=== PATIENT | male | born 1945 | race Caucasian/White ===

== ENCOUNTER → 2017-04-21 16:44 | Outpatient (CLI) | payer MEDICARE, MEDICAID, SELFPAY ==
[2017-04-21 17:35] LABS: PSA,Total- Diagnostic 8.45 ng/mL (0.0-4.0)
== END ==
PROVIDERS: Family Provider Family Medicine; PCP Family Medicine; Visit Provider Nurse Practitioner Adult Health
DX: R97.20 Elevated prostate specific antigen [PSA] (principal)
CPT/HCPCS: 36415; 84153

== ENCOUNTER 2017-04-24 20:51 | Emergency (ER) | payer MEDICARE, MEDICAID, SELFPAY ==
[2017-04-24 20:52] VITALS: BP 155/87; PULSE 90; RESP 16; TEMP 36.7; O2SAT 97; BMI 24.3
--- NOTE | 2017-04-24 21:15 | RAD_ITS ---
STUDY: X-RAY - LEFT SHOULDER REASON FOR EXAM: Male, 72 years old. Pain, injury TECHNIQUE: 2 view(s) of the shoulder. COMPARISON: None. FINDINGS: There are mild degenerative changes at the acromioclavicular joint. There is no fracture or dislocation. There is no osseous destruction. Normal glenohumeral articulation. Normal humeral head and visualized proximal humerus. The soft tissue structures are unremarkable. Normal visualized pulmonary apex. RAD/Shoulder min 2 Views IMPRESSION: No fracture or dislocation Electronically Signed: Roberto Honeycutt MD at 22:09 EST Tel , Service support ,
--- NOTE | 2017-04-24 21:45 | RAD_ITS ---
STUDY: X-RAY - RIGHT KNEE REASON FOR EXAM: Male, 72 years old. Pain, injury TECHNIQUE: 4 view(s) of the knee. COMPARISON: None. FINDINGS: Normal visualized distal femur. Normal visualized proximal tibia and fibula. Normal proximal tibiofibular articulation. Normal medial femorotibial compartment. Normal lateral femorotibial compartment. Normal patellofemoral articulation. The soft tissue structures are unremarkable. RAD/Knee 4 or More Views IMPRESSION: Normal x-ray examination of the knee. Electronically Signed: Roberto Honeycutt MD at 22:08 EST Tel , Service support ,
--- NOTE | 2017-04-24 22:18 | ED.DCSUM_ITS ---
- ER Visit Summary Date of Service: 04/24/17 Chief Complaint: Fall History of Present Illness: The patient is a 72 M who was playing basketball tonight when he fell. He notes pain to his right knee and his left shoulder. He states he fell backwards is unsure how he injured these areas. No loss of consciousness. Denies any other pain. Physical Examination: Afebrile vital signs are stable Patient has tenderness to palpation over the anterior patella on the right and posterior left shoulder. He has full range of motion excellent muscle strength. Neurovascular intact distally. Test Results: X-rays of the knee and shoulder were negative for fracture Emergency Department Course and Treatment: She will be discharged home with conservative treatments and follow-up with his doctor if not improved Impression: 1. Right knee and left shoulder contusion This note was generated with [employer] dictation software. It may contain incorrect words, spelling, and punctuation that were not noted in review of the chart prior to signing ED Disposition - Plan for ED Patient: Disposition: Home or Assisted Living Chief Complaint: Fall Instructions: ED Contusion Lower Ext, ED Contusion Upper Ext Referrals: Tigre Paredes MD [Primary Care Provider] - As Needed
[2017-04-24 22:27] VITALS: RESP 16
== END 2017-04-24 22:28 | disposition home or self-care (01) ==
PROVIDERS: Emergency Provider Emergency Medicine; Family Provider Family Medicine; PCP Family Medicine
DX: S80.01XA Contusion of right knee, initial encounter (principal); S40.012A Contusion of left shoulder, initial encounter; W18.30XA Fall on same level, unspecified, initial encounter; Y93.67 Activity, basketball; Y92.89 Other specified places as the place of occurrence of the external cause; Y99.9 Unspecified external cause status; F32.9 Major depressive disorder, single episode, unspecified
CPT/HCPCS: 73030; 73564; 99283

== ENCOUNTER → 2017-07-29 16:35 | Outpatient (CLI) | payer MEDICARE, MEDICAID, SELFPAY ==
--- NOTE | 2017-07-29 16:35 | DT_ITS ---
This patient was seen during an EMR downtime July 28, 2017 - August 04, 2017. This patient may have a combination of paper and electronic documentation or all paper documentation. All documentation is viewable within the e-chart portion of [facility] for each patient visit.
[2017-08-03 19:26] LABS: Vitamin B12 283 pg/mL (211-911)
[2017-08-04 09:42] LABS: ALB/GLOB Ratio 1.3 RATIO (0.9-2.4); AST(SGOT) 20 U/L (15-37); Alanine Aminotransfer ALT/SGPT 24 U/L (16-61); Albumin, Serum 3.9 g/dL (3.2-5.0); Alkaline Phosphatase 63 U/L (45-117); BUN 17 mg/dL (7-18); BUN/Creat Ratio 16.7 RATIO (10-20); Calcium,Total 8.8 mg/dL (8.5-10.1); Creatinine, Serum 1.02 mg/dL (0.70-1.30); EST Glomerular Filtration Rate 77 mL/min (>60); Est Glom Filt Rate - Afr Amer 93 mL/min (>60); Globulin 3.1 g/dL (2.2-4.2); Glucose 83 mg/dL (74-106)
[2017-08-04 09:43] LABS: Anion Gap 8 (5-15); Chloride 108 mmol/L (98-107); Potassium 4.6 mmol/L (3.5-5.1); Sodium Level 144 mmol/L (136-145); T4 Free Direct 1.03 ng/dL (0.76-1.46); Thyroid Stim Hormone (TSH) 2.22 uIU/mL (0.358-3.74)
[2017-08-04 09:48] LABS: Hematocrit 45.9 % (40-54); Hemoglobin 15.3 g/dl (13.0-16.5); Mean Corp Hgb Conc 33.3 g/gl (32-36); Mean Corpuscular Hgb 31.9 pg (27.0-32.0); Mean Corpuscular Volume 95.8 fL (80-94); Mean Platelet Vol. 11.3 fl (6.2-12.0); POSITIVE COUNT NO; POSITIVE MORPHOLOGY NO; Platelet Count 176 K/mm3 (150-450); RBC Distribution Width CV 13.8 % (11.6-14.6); Red Blood Count 4.79 M/mm3 (4.6-6.2); White Blood Count 11.4 K/mm3 (4.4-11.0)
[2017-08-04 09:49] LABS: Absolute Lymphocyte Count 8.21 X10^3/ul (0.83-4.51); Absolute Neutrophil Count 2.7 X10^3/uL (2.0-7.7); Basophil# 0.02 X10^3/uL; Basophil% 0.2 % (0-1); Differential Indicated SCAN CRITERIA MET; Eosinophil# 0.11 X10^3/uL; Lymphocyte # 8.21 X10^3/ul (4.0); Monocyte# 0.39 X10^3/uL; Monocyte% 3.4 % (0-10); Neutrophil # 2.67 X10^3/uL (2.7-7.7); Neutrophil % 23.3 % (47-70); POSITIVE DIFFERENTIAL YES
[2017-08-04 09:50] LABS: Anisocytosis 1+; Differential Comment SCAN; Macrocytosis 1+
[2017-08-07 09:49] LABS: Pathologist Review Reviewed
== END ==
PROVIDERS: Family Provider Family Medicine; PCP Family Medicine; Visit Provider Family Medicine
DX: G25.0 Essential tremor (principal); R63.4 Abnormal weight loss
CPT/HCPCS: 36415; 80053; 82607; 84439; 84443; 85025

== ENCOUNTER → 2017-09-09 14:42 | Outpatient (CLI) | payer MEDICARE, MEDICAID, SELFPAY ==
[2017-09-09 18:07] LABS: Absolute Lymphocyte Count 4.81 X10^3/ul (0.83-4.51); Basophil# 0.03 X10^3/uL; Basophil% 0.4 % (0-1); Eosinophil# 0.14 X10^3/uL; Eosinophils% 1.7 % (0-5); Hematocrit 40.3 % (40-54); Hemoglobin 13.5 g/dl (13.0-16.5); Lymphocyte # 4.81 X10^3/ul (4.0); Lymphocyte % 57.4 % (19-41); Mean Corp Hgb Conc 33.5 g/gl (32-36); Mean Corpuscular Hgb 32.3 pg (27.0-32.0); Mean Corpuscular Volume 96.4 fL (80-94); Mean Platelet Vol. 10.8 fl (6.2-12.0); Monocyte# 0.36 X10^3/uL; Monocyte% 4.3 % (0-10); Neutrophil # 3.02 X10^3/uL (2.7-7.7); Platelet Count 162 K/mm3 (150-450); RBC Distribution Width CV 13.6 % (11.6-14.6); RBC Distribution Width SD 46.5 fl (35.1-43.9); Red Blood Count 4.18 M/mm3 (4.6-6.2); White Blood Count 8.4 K/mm3 (4.4-11.0)
[2017-09-09 18:20] LABS: POSITIVE COUNT NO; POSITIVE DIFFERENTIAL NO; POSITIVE MORPHOLOGY NO
== END ==
PROVIDERS: Family Provider Family Medicine; PCP Family Medicine; Visit Provider Family Medicine
DX: D72.820 Lymphocytosis (symptomatic) (principal)
CPT/HCPCS: 36415; 85025

== ENCOUNTER → 2017-11-26 08:48 | Outpatient (CLI) | payer MEDICARE, MEDICAID, SELFPAY ==
[2017-11-26 09:38] LABS: PSA,Total- Diagnostic 7.72 ng/mL (0.0-4.0)
== END ==
PROVIDERS: Family Provider Family Medicine; PCP Family Medicine; Referring Provider Nurse Practitioner Adult Health; Visit Provider Nurse Practitioner Adult Health
DX: R97.20 Elevated prostate specific antigen [PSA] (principal)
CPT/HCPCS: 36415; 84153

== ENCOUNTER → 2018-05-26 10:05 | Outpatient (CLI) | payer MEDICARE, MEDICAID, SELFPAY ==
[2018-05-26 12:29] LABS: PSA,Total- Diagnostic 6.56 ng/mL (0.0-4.0)
== END ==
PROVIDERS: Family Provider Family Medicine; PCP Family Medicine; Referring Provider Nurse Practitioner Adult Health; Visit Provider Nurse Practitioner Adult Health
DX: R97.20 Elevated prostate specific antigen [PSA] (principal)
CPT/HCPCS: 36415; 84153

== ENCOUNTER → 2018-11-26 09:30 | Outpatient (CLI) | payer MEDICARE, MEDICAID, SELFPAY ==
[2018-11-26 10:33] LABS: PSA,Total- Diagnostic 6.44 ng/mL (0.0-4.0)
== END ==
PROVIDERS: Family Provider Family Medicine; PCP Family Medicine; Referring Provider Nurse Practitioner Adult Health; Visit Provider Nurse Practitioner Adult Health
DX: R97.20 Elevated prostate specific antigen [PSA] (principal)
CPT/HCPCS: 36415; 84153

== ENCOUNTER → 2019-09-13 04:36 | Outpatient (CLI) | payer MEDICARE, MEDICAID, SELFPAY ==
[2019-09-13 09:08] LABS: Absolute Lymphocyte Count 10.57 X10^3/uL (0.83-4.51); Absolute Neutrophil Count 2.7 X10^3/uL (2.0-7.7); Basophil# 0.04 X10^3/uL; Basophil% 0.3 % (0-1); Eosinophil# 0.14 X10^3/uL; Hematocrit 42.4 % (40-54); Hemoglobin 14.3 g/dL (13.0-16.5); Lymphocyte # 10.57 X10^3/ul (4.0); Lymphocyte % 76.3 % (19-41); Mean Corp Hgb Conc 33.7 g/dL (32-36); Mean Corpuscular Hgb 32.8 pg (27.0-32.0); Mean Corpuscular Volume 97.2 fL (80-94); Mean Platelet Vol. 10.2 fl (6.2-12.0); Monocyte# 0.36 X10^3/uL; Monocyte% 2.6 % (0-10); NRBC Flagged by Analyzer 0 % (0-5); Neutrophil # 2.72 X10^3/uL (2.7-7.7); Neutrophil % 19.7 % (47-70); POSITIVE DIFFERENTIAL YES; POSITIVE MORPHOLOGY YES; Platelet Count 157 K/mm3 (150-450); RBC Distribution Width CV 13.1 % (11.6-14.6); RBC Distribution Width SD 46.4 fl (35.1-43.9); Red Blood Count 4.36 M/mm3 (4.6-6.2); White Blood Count 13.9 K/mm3 (4.4-11.0)
[2019-09-13 09:11] LABS: Differential Indicated SCAN CRITERIA MET
[2019-09-13 09:15] LABS: ALB/GLOB Ratio 1.3 RATIO (0.9-2.4); AST(SGOT) 19 U/L (15-37); Alanine Aminotransfer ALT/SGPT 29 U/L (16-61); Albumin, Serum 3.7 g/dL (3.2-5.0); Alkaline Phosphatase 83 U/L (45-117); Anion Gap 4 (5-15); BUN 17 mg/dL (7-18); BUN/Creat Ratio 15.9 RATIO (10-20); Calcium,Total 8.8 mg/dL (8.5-10.1); Chloride 110 mmol/L (98-107); Cholesterol 90 mg/dL (200); Creatinine, Serum 1.07 mg/dL (0.70-1.30); EST Glomerular Filtration Rate 72 mL/min (>60); Est Glom Filt Rate - Afr Amer 87 mL/min (>60); Globulin 2.8 g/dL (2.2-4.2); Glucose 107 mg/dL (74-106); High Density Lipoprotein 39 mg/dL; Magnesium 2.2 mg/dL (1.6-2.6); Potassium 4.2 mmol/L (3.5-5.1); Protein, Total 6.5 g/dL (6.4-8.2); Sodium Level 141 mmol/L (136-145); Thyroid Stim Hormone (TSH) 2.08 uIU/mL (0.358-3.74); Triglycerides 94 mg/dL; Very Low Density Lipoprotein 19 mg/dL (5-40)
[2019-09-13 09:34] LABS: Vitamin B12 365 pg/mL (211-911)
[2019-09-13 09:42] LABS: Smudge Cells 1+
[2019-09-14 11:42] LABS: Pathologist Review Reviewed
== END ==
PROVIDERS: PCP Family Medicine; Visit Provider Family Medicine
DX: F03.90 Unspecified dementia, unspecified severity, without behavioral disturbance, psychotic disturbance, mood disturbance, and anxiety (principal); G25.0 Essential tremor; E78.5 Hyperlipidemia, unspecified; E83.42 Hypomagnesemia
CPT/HCPCS: 36415; 80053; 80061; 82607; 83735; 84443; 85025

== ENCOUNTER → 2019-10-08 05:28 | Outpatient (CLI) | payer MEDICARE, MEDICAID, SELFPAY ==
[2019-10-08 09:03] LABS: Absolute Lymphocyte Count 8.43 X10^3/uL (0.83-4.51); Absolute Neutrophil Count 2.2 X10^3/uL (2.0-7.7); Basophil# 0.03 X10^3/uL; Basophil% 0.3 % (0-1); Eosinophils% 0.9 % (0-5); Hematocrit 41.5 % (40-54); Hemoglobin 13.4 g/dL (13.0-16.5); Lymphocyte # 8.43 X10^3/ul (4.0); Lymphocyte % 76.8 % (19-41); Mean Corp Hgb Conc 32.3 g/dL (32-36); Mean Corpuscular Hgb 31.5 pg (27.0-32.0); Mean Corpuscular Volume 97.4 fL (80-94); Mean Platelet Vol. 10.5 fl (6.2-12.0); Monocyte# 0.23 X10^3/uL; Monocyte% 2.1 % (0-10); NRBC Flagged by Analyzer 0 % (0-5); Neutrophil # 2.17 X10^3/uL (2.7-7.7); Neutrophil % 19.8 % (47-70); POSITIVE DIFFERENTIAL YES; POSITIVE MORPHOLOGY YES; Platelet Count 160 K/mm3 (150-450); RBC Distribution Width CV 12.8 % (11.6-14.6); RBC Distribution Width SD 45.3 fl (35.1-43.9); Red Blood Count 4.26 M/mm3 (4.6-6.2)
[2019-10-08 09:37] LABS: Differential Indicated SCAN CRITERIA MET
[2019-10-08 09:38] LABS: Differential Comment SCANNED; Reactive Lymphocyte 2+
== END ==
PROVIDERS: PCP Family Medicine; Visit Provider Family Medicine
DX: D72.820 Lymphocytosis (symptomatic) (principal)
CPT/HCPCS: 36415; 85025

== ENCOUNTER 2020-07-17 13:12 | Emergency (ER) | payer MEDICARE, MEDICAID, SELFPAY ==
[2020-07-17] VITALS (9 sets, daily range): BP systolic 107–142; BP diastolic 60–87; PULSE 70–82; RESP 6–20; TEMP 36.1–36.6; O2SAT 95–98; BMI 26.4
--- NOTE | 2020-07-17 13:16 | CT_ITS ---
STUDY: CT HEAD STROKE PROTOCOL W/O CONTRAST INJECTION REASON FOR EXAM: Male, 75 years old. Neuro deficit, acute, stroke suspected RADIATION DOSAGE (If Supplied By Facility): CTDIvol = ( 44.99 ) mGy, DLP = ( 829.85 ) mGycm TECHNIQUE: Transaxial CT imaging of the brain was performed without administration of intravenous contrast material. Individualized dose optimization techniques were used for this CT. COMPARISON: No relevant priors. FINDINGS: Normal soft tissue structures. Normal calvarium. There is mild cerebral atrophy with widening of the extra-axial spaces and ventricular dilatation. Normal white matter tracts of the cerebral hemispheres. Normal basal ganglia and thalami. Normal brainstem. Normal cerebellum. There is no intracranial hemorrhage. There are no findings of an acute ischemic infarction. Atherosclerotic plaque formation of the cavernous portions of the internal carotid arteries bilaterally. Normal visualized paranasal sinuses. CT/STROKE Brain/Head without Cont IMPRESSION: Chronic involutional changes of the brain. N.B. : The above information has been verbally conveyed by Rashi Baird MD to Keith Schwartz on 07/17/2020 13:27:33 (ET). Electronically Signed: Rashi Baird MD at 13:28 EDT , Service support ,
--- NOTE | 2020-07-17 13:16 | RAD_ITS ---
STUDY: X-RAY CHEST REASON FOR EXAM: Male, 75 years old. Neuro deficit, acute, stroke suspected TECHNIQUE: Single AP portable view of the chest. COMPARISON: None. FINDINGS: EKG electrodes are seen. Mild degree of increased markings at the lung bases suggest mild bibasilar atelectasis. There is no demonstrated pleural abnormality. Normal size heart. Normal mediastinum and lucille. Normal visualized pulmonary arteries. There is atherosclerotic tortuosity of the aortic arch and descending thoracic aorta. Normal visualized thoracic spine. Normal visualized ribs, clavicles, and shoulders. There is no demonstrated abnormality of the visualized soft tissue structures of the upper abdomen. RAD/Chest 1 View IMPRESSION: Mild degree of increased markings at the lung bases suggestive of basilar atelectasis. Electronically Signed: Rashi Baird MD at 14:17 EDT , Service support ,
--- NOTE | 2020-07-17 13:16 | EKG12_ITS ---
Test Reason : STROKE Blood Pressure : / mmHG Vent. Rate : 067 BPM Atrial Rate : 067 BPM P-R Int : 168 ms QRS Dur : 098 ms QT Int : 398 ms P-R-T Axes : 051 -03 062 degrees QTc Int : 420 ms Normal sinus rhythm Incomplete right bundle branch block Nonspecific ST and T wave abnormality Abnormal ECG Confirmed by MOLLY ALVA, DELANEY ([id number]), map editor BHARATI KHAN ([id number]) on 07/19/2020 9:38:41 AM Referred By: LORENE Confirmed By:DELANEY BARNES MD
--- NOTE | 2020-07-17 13:16 | CT_ITS ---
STUDY: CTA HEAD AND NECK WITH CONTRAST REASON FOR EXAM: Male, 75 years old. Neuro deficit, acute, stroke suspected RADIATION DOSAGE (If Supplied By Facility): CTDIvol = ( 22.62 ) mGy, DLP = ( 664.41 ) mGycm TECHNIQUE: CT angiography was performed with a multi-detector CT scanner. Data acquisition was obtained from the skull base through the vertex following intravenous administration of IV 100mL [id number]-[id number]. MIP images were reconstructed from the axial data set. Post-processing of the angiographic images was performed, with multiplanar reformation and 3D reconstruction. Individualized dose optimization techniques were used for this CT. COMPARISON: No relevant priors. FINDINGS: Normal bilateral petrous carotid arteries. Normal right cavernous carotid artery with a normal supraclinoid bifurcation. Normal left cavernous carotid artery with a normal supraclinoid bifurcation. Normal right A1 segments of the anterior cerebral artery. Normal left A1 segments of the anterior cerebral artery. Normal intact anterior communicating artery (ACOM). Normal bilateral A2 segments of the anterior cerebral arteries. Normal right M1 and M2 segments of the middle cerebral arteries, with a normal M1 bifurcation. Normal left M1 and M2 segments of the middle cerebral arteries, with a normal M1 bifurcation. Normal right posterior communicating artery (PCOM). Normal left posterior communicating artery (PCOM). Normal bilateral vertebral arteries. Normal basilar artery with a normal basilar bifurcation. The visualized bilateral superior cerebellar (SCA) arteries are normal. Normal bilateral P1, P2 and visualized P3 segments of the posterior cerebral arteries. There is no demonstrated aneurysm of the quinault of [place]. There is no demonstrated abnormality of the visualized brain. AORTIC ARCH: There is a bovine origin of the great vessels arising from the aortic arch with a common origin of the brachiocephalic and left common carotid artery. Normal origin of the left subclavian artery. RIGHT CAROTID ARTERIES: Normal right common carotid artery (CCA). Normal right common carotid bulb. Normal origin of the right internal carotid (ICA) artery without a hemodynamically significant stenosis. Normal visualized cervical portion of the right internal carotid artery. There is mild atherosclerotic plaque formation of the origin of the right external carotid artery with less than 50% cross sectional diameter stenosis. LEFT CAROTID ARTERIES: Normal left common carotid artery (CCA). Normal left common carotid bulb. There is severe atherosclerotic plaque formation of the origin of the left internal carotid artery with a near complete occlusion. Decreased caliber of the cervical portion of the left internal carotid artery. Normal origin of the left external carotid artery (ECA). VERTEBRAL ARTERIES: There is enhancement within the bilateral vertebral arteries with a small right vertebral artery, and a dominant left vertebral artery. 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 N.B. : The above information has been verbally conveyed by Rashi Baird MD to Dr Efren DO on 07/17/2020 13:44:11 (ET). Electronically Signed: Rashi Baird MD at 13:45 EDT , Service support ,
--- NOTE | 2020-07-17 13:21 | CM.ED ---
SOCIAL WORK Stroke Alert Responded to Stroke Alert. Patient's sister, Anusha arrived. Patient in CT. Introduced role and reason for referral. Sister states patient from assisted and she is HPOA. Sister states patient had an episode at [facility] yesterday that she informed worker at assisted. Sister escorted back to patient's room. This worker to remain available for needs. Linda Martin, NET SQL DEVELOPER, STRESS ENGINEER
[2020-07-17 13:38] LABS: Absolute Neutrophil Count 3.6 X10^3/uL (2.0-7.7); Basophil# 0.05 X10^3/uL; Basophil% 0.3 % (0-1); Eosinophil# 0.09 X10^3/uL; Eosinophils% 0.6 % (0-5); Hematocrit 43.4 % (40-54); Hemoglobin 14.5 g/dL (13.0-16.5); Lymphocyte % 71.4 % (19-41); Mean Corp Hgb Conc 33.4 g/dL (32-36); Mean Corpuscular Hgb 32.1 pg (27.0-32.0); Mean Platelet Vol. 10.7 fl (6.2-12.0); Monocyte# 0.89 X10^3/uL; Monocyte% 5.5 % (0-10); NRBC Flagged by Analyzer 0.2 % (0-5); Neutrophil # 3.59 X10^3/uL (2.7-7.7); POSITIVE DIFFERENTIAL YES; POSITIVE MORPHOLOGY YES; Platelet Count 163 K/mm3 (150-450); RBC Distribution Width CV 13.3 % (11.6-14.6); Red Blood Count 4.52 M/mm3 (4.6-6.2); White Blood Count 16.3 K/mm3 (4.4-11.0)
--- NOTE | 2020-07-17 13:41 | EDS_ITS ---
HPI History of Present Illness Chief Complaint: Neuro S/Sx Informant: patient, family and EMS Onset/Context/Timing Onset: Today and Hours (3) Context: Sudden Onset Quality and Location: Positive for Right Facial Droop and Expressive Aphasia Narrative Narrative: Patient presents with stroke that occurred today. Patient was last known well at 10 AM. Patient presented here at approximately 1:13 PM. Patient was found to have facial weakness and difficulty following commands at his half-way. Prehospital stroke team was called. Patient has a history of MRDD and that limits his history. Patient denies any headaches. Patient denies any nausea or vomiting. [facility] Medical History Bundle branch block Hyperlipemia Home Medications flaxseed oil 1,000 mg PO QHS 12/02/16 [History Last Taken 07/16/20] sertraline 50 mg PO QHS 12/02/16 [History Last Taken 07/16/20] aspirin 81 mg PO QHS 07/17/20 [History Last Taken 07/16/20] atorvastatin 40 mg PO QHS 07/17/20 [History Last Taken 07/16/20] donepezil 10 mg PO QHS 07/17/20 [History Last Taken 07/16/20] magnesium oxide 400 mg PO DAILY 07/17/20 [History Last Taken 07/17/20] memantine 5 mg PO BID 07/17/20 [History Last Taken 07/17/20] Allergy/AdvReac Type Severity Reaction Status Date / Time meloxicam AdvReac Other Verified 07/17/20 13:25 Social History Smoking Status: Never smoker ROS ROS ED Constitutional Constitutional ED: Denies chills or fever(s) Eyes Eyes: Denies blurry vision or change in vision ENT ENT ED: Denies rhinorrhea or sore throat Cardiovascular Cardiovascular: Denies chest pain or palpitations Respiratory/Chest Respiratory/Chest: Denies cough or dyspnea Gastrointestinal Gastrointestinal: Denies nausea or vomiting Genitourinary Genitourinary ED: Denies dysuria or hematuria Musculoskeletal Musculoskeletal: Denies back pain or neck pain Integumentary Denies abscess or rash Neurologic Neurologic: Reports weakness; Denies headache(s) Allergic/Immunologic Allergic/Immunologic ED: Denies mouth swelling or urticaria EXAM Physical Exam Const Vital Signs: 07/17/20 13:16 07/17/20 13:20 07/17/20 13:37 Temperature 97 F L Temperature Source Temporal Pulse Rate 71 72 Respiratory Rate 18 18 Blood Pressure 120/82 H 142/78 H Blood Pressure Mean 94 99 Blood Pressure Source Blood Pressure Position Blood Pressure Location Pulse Ox 98 98 Oxygen Delivery Method Room Air Room Air Room Air 07/17/20 13:39 07/17/20 13:46 07/17/20 13:54 Temperature 98 F 97 F L Temperature Source Temporal Temporal Pulse Rate 82 70 75 Respiratory Rate 18 20 H 16 Blood Pressure 132/81 H 107/60 129/71 H Blood Pressure Mean 98 75 90 Blood Pressure Source Monitor Manual Blood Pressure Position Supine Semi-Fowlers Blood Pressure Location Right Arm Right Arm Pulse Ox 96 97 96 Oxygen Delivery Method Room Air Room Air Room Air 07/17/20 14:05 07/17/20 14:20 07/17/20 14:35 Temperature Temperature Source Pulse Rate 77 72 72 Respiratory Rate 18 18 16 Blood Pressure 122/62 H 131/73 H 127/87 H Blood Pressure Mean 82 92 100 Blood Pressure Source Monitor Monitor Monitor Blood Pressure Position Semi-Fowlers Semi-Fowlers Semi-Fowlers Blood Pressure Location Right Arm Right Arm Right Arm Pulse Ox 97 95 98 Oxygen Delivery Method Room Air Room Air Room Air 07/17/20 14:45 Temperature Temperature Source Pulse Rate 71 Respiratory Rate 6 L Blood Pressure 132/82 H Blood Pressure Mean 98 Blood Pressure Source Blood Pressure Position Blood Pressure Location Pulse Ox 98 Oxygen Delivery Method Positive well nourished HEENT Reports moist mucous membranes atraumatic Eyes PERRL and EOMs intact bilaterally Neck supple and no JVD Resp normal respiratory effort and clear to auscultation bilaterally Cardio no murmurs Rate: regular rate Rhythm: regular rhythm GI normal to inspection, nondistended, normoactive bowel sounds, soft to palpation and non-tender Extremity normal to inspection General Extremety ED: Negative for deformity or tenderness General Extremity: Negative for deformity Neuro no sensory deficits noted Neuro Narrative: There is slight right facial weakness. Otherwise cranial nerves II through XII are grossly intact. There are no visual field deficits. Patient had difficulty with writing a sentence. Patient also had trouble iden tifying pictures. Sensorium / Orientation: alert, oriented to person and oriented to place Speech: speech normal Motor Exam: strength 5/5 throughout Psych mental status grossly normal Skin Rashes: no rashes STROKE Vital Signs/Narrative: Vital Signs Temp Pulse Resp BP Pulse Ox 07/17/20 14:45 71 6 L 132/82 H 98 07/17/20 14:35 72 16 127/87 H 98 07/17/20 14:20 72 18 131/73 H 95 07/17/20 14:05 77 18 122/62 H 97 07/17/20 13:54 97 F L 75 16 129/71 H 96 07/17/20 13:46 70 20 H 107/60 97 07/17/20 13:39 98 F 82 18 132/81 H 96 07/17/20 13:20 97 F L 72 18 142/78 H 98 07/17/20 13:16 71 18 120/82 H 98 Inital Vital Signs reviewed: Yes MDM MDM MDM Narrative Medical decision making narrative: Patient had an expressive aphasia and right facial weakness that began approximately 3 hours and 15 minutes prior to arrival. Prehospital stroke team was activated. Patient was evaluated by stroke neurologist at [facility]. He recommended giving patient TPA. This was ordered. Family was in agreement with this. CTA results showed near complete occlusion of the left internal carotid artery. This was interpreted by the radiologist and reviewed by myself. I discussed this result with the stroke neurologist. Patient will be transferred to [facility] for further evaluation of this. Family understood and was agreeable with the plan. All questions were answered. Lab Data Attestation: I reviewed the patient's lab results. Labs: Laboratory Results - last 24 hr 07/17/20 07/17/20 07/17/20 13:10 13:10 13:10 WBC 16.3 H RBC 4.52 L Hgb 14.5 Hct 43.4 MCV 96.0 H MCH 32.1 H MCHC 33.4 RDW Std Deviation 47.0 H RDW Coeff of [place] 13.3 Plt Count 163 MPV 10.7 Immature Gran % (Auto) 0.200 Neut % (Auto) 22.0 L Lymph % (Auto) 71.4 H [place] % (Auto) 5.5 Eos % (Auto) 0.6 Baso % (Auto) 0.3 Absolute Neuts (auto) 3.6 Absolute Lymphs (auto) 11.60 H Nucleated RBC % 0.2 PT Cancelled INR Cancelled APTT Cancelled Sodium 138 Potassium 4.1 Chloride 107 Carbon Dioxide 26.0 Anion Gap 5 BUN 18 Creatinine 1.14 Estim Creat Clear Calc 60.55 Est GFR (MDRD) Af Amer 81 Est GFR (MDRD) Non-Af 67 BUN/Creatinine Ratio 15.8 Glucose 153 H Calcium 9.0 Troponin I < 0.015 07/17/20 13:55 WBC RBC Hgb Hct MCV MCH MCHC RDW Std Deviation RDW Coeff of [place] Plt Count MPV Immature Gran % (Auto) Neut % (Auto) Lymph % (Auto) [place] % (Auto) Eos % (Auto) Baso % (Auto) Absolute Neuts (auto) Absolute Lymphs (auto) Nucleated RBC % PT 13.4 INR 1.1 APTT 26.1 Sodium Potassium Chloride Carbon Dioxide Anion Gap BUN Creatinine Estim Creat Clear Calc Est GFR (MDRD) Af Amer Est GFR (MDRD) Non-Af BUN/Creatinine Ratio Glucose Calcium Troponin I Radiography Diagnostic Testing: Radiology Impression Brain CT 07/17/20 13:16 IMPRESSION: Chronic involutional changes of the brain. N.B. : The above information has been verbally conveyed by Rashi Baird MD to Keith Schwratz on 07/17/2020 13:27:33 (ET). Electronically Signed: Rashi Baird MD at 13:28 EDT , Service support , ADDENDUM: 07/17/20 1335 IMPRESSION: Chronic involutional changes of the brain. N.B. : The above information has been verbally conveyed by Rashi Baird MD to Keith Schwartz on 07/17/2020 13:27:33 (ET). Electronically Signed: Rashi Baird MD at 13:28 EDT , Service support , Chest X-Ray 07/17/20 13:16 IMPRESSION: Mild degree of increased markings at the lung bases suggestive of basilar atelectasis. 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 N.B. : The above information has been verbally conveyed by Rashi Baird MD to Dr Efren DO, on 07/17/2020 13:44:11 (ET). 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 N.B. : The above information has been verbally conveyed by Rashi Baird MD to Dr Efren DO, on 07/17/2020 13:44:11 (ET). Electronically Signed: Rashi Baird MD at 13:45 EDT , Service support , EKG Initial EKG: Attestation: I personally reviewed and interpreted this EKG as follows: Interpretation: Sinus Rhythm (67), RBBB (Incomplete) and Non-Specific ST Changes Treatment and Re-Evaluation Vital Sign Attestation:: Vital signs were reviewed prior to patient being transferred. They are stable. Stroke Documentation Questions Stroke Team Activated: Yes Reviewed Inclusion/Exclusion criteria: Yes Was Patient considered for Endovascular Intervention?: No IV Alteplase (t-PA) Administered: Yes No contraindications for IV Alteplase (t-PA) administration.: Yes Alteplase (t-PA) risks, benefits, alternative discussed: Yes Critical Care Time Critical Care Time: Yes Critical care time (excluding procedures): 30-74 minutes (32), Including time spent:, Discussing w/Patient &/or Family/Trim Setter, Discussing w/Consultants, Arranging Admission or Transfer, Performing Direct Patient Care at Bedside and - (Interpreting tests) Discharge Plan Triage Chief Complaint: Neuro S/Sx ED Provider: Keith Schwartz Dx/Rx/DC Orders Clinical Impression: Stroke Prescriptions: No Action flaxseed oil 1,000 MG capsule 1,000 mg PO QHS RF: 0 sertraline 50 MG tablet 50 mg PO QHS RF: 0 atorvastatin 40 mg tablet 40 mg PO QHS RF: 0 donepezil 10 mg tablet 10 mg PO QHS RF: 0 aspirin 81 mg Tablet,Delayed Release (Dr/Ec) 81 mg PO QHS RF: 0 memantine 5 mg tablet 5 mg PO BID RF: 0 magnesium oxide 400 mg magnesium Tablet 400 mg PO DAILY RF: 0 Primary Care Provider: Tigre Paredes Referrals: Tigre Paredes MD [Primary Care Provider] - Disposition Disposition: Acute Care Hospital Discharge Location: [facility] Discharge Date/Time: 07/17/20 14:45
[2020-07-17 13:51] LABS: Differential Indicated SCAN CRITERIA MET
[2020-07-17 13:57] LABS: Anion Gap 5 (5-15); BUN 18 mg/dL (7-18); BUN/Creat Ratio 15.8 RATIO (10-20); Chloride 107 mmol/L (98-107); Creatinine, Serum 1.14 mg/dL (0.70-1.30); EST Glomerular Filtration Rate 67 mL/min (>60); Est Glom Filt Rate - Afr Amer 81 mL/min (>60); Estimated Creatinine Clearance 60.55 ml/min; Glucose 153 mg/dL (74-106); Potassium 4.1 mmol/L (3.5-5.1); Sodium Level 138 mmol/L (136-145)
[2020-07-17 14:09] LABS: International Normalized Ratio 1.1; Prothrombin Time (Protime)PT. 13.4 SECONDS (11.7-14.9)
[2020-07-17 14:10] LABS: Partial Thromboplast Time 26.1 Seconds (24.1-36.2)
== END 2020-07-17 14:45 | disposition short-term general hospital (02) ==
PROVIDERS: Emergency Provider Emergency Medicine; PCP Family Medicine
DX: I63.9 Cerebral infarction, unspecified (principal); I65.22 Occlusion and stenosis of left carotid artery; I45.10 Unspecified right bundle-branch block; E78.5 Hyperlipidemia, unspecified; R29.810 Facial weakness; R47.01 Aphasia; Z79.1 Long term (current) use of non-steroidal anti-inflammatories (NSAID); Z79.82 Long term (current) use of aspirin
CPT/HCPCS: 51702; 70450; 70496; 70498; 71045; 80048; 84484; 85025; 85610; 85730; 93005; 99285; J2997; Q9967; A4216

== ENCOUNTER 2020-07-22 11:55 | Emergency (ER) | payer MEDICARE, MEDICAID, SELFPAY ==
[2020-07-17 14:10] VITALS: BMI 26.4
[2020-07-22 11:56] VITALS: BP 115/65; PULSE 64; RESP 16; TEMP 36.1; BMI 24.4
--- NOTE | 2020-07-22 12:16 | CT_ITS ---
We are attempting to reach an attending provider to discuss findings. An addendum with communication details will be sent when the communication is complete. STUDY: CT BRAIN WITHOUT CONTRAST REASON FOR EXAM: Male, 75 years old. Head trauma. RADIATION DOSAGE (If Supplied By Facility): CTDIvol = ( 44.99 ) mGy, DLP = ( 812.98 ) mGycm TECHNIQUE: Transaxial CT imaging of the brain was performed without administration of intravenous contrast material. Individualized dose optimization techniques were used for this CT. COMPARISON: 07/17/2020. FINDINGS: Normal soft tissue structures. Normal calvarium. There is mild cerebral atrophy with widening of the extra-axial spaces and ventricular dilatation. There are areas of decreased attenuation within the white matter tracts of the supratentorial brain, consistent with microvascular disease changes. New acute infarct in the left frontal and left parietal lobes. Normal basal ganglia and thalami. Normal brainstem. Normal cerebellum. There is no intracranial hemorrhage. Normal visualized paranasal sinuses. CT/Brain/Head without Contrast IMPRESSION: Acute left frontal and parietal infarcts new since previous examination. No evidence of bleeding. Electronically Signed: Denny Britt MD at 12:47 EDT Tel , Service support ,
--- NOTE | 2020-07-22 12:16 | ED.VIS.FALL ---
HPI HPI - Fall History of Present Illness Chief Complaint: Fall Informant: patient and other (Communications Tech) Occured/Mechanism Occurred: Hours (1) Mechanism/Context: Yes same level fall Pain/Injury Location: Forehead Quality of Pain: - (Sore) Current Severity: Mild Maximum Severity: Mild Associated Symptoms Associated Symptoms: Negative for Parasthesias, Weakness, Loss of function, Inability to ambulate, Loss of consciousness and Amnesia Narrative Narrative: Patient was just discharged yesterday from [facility] after being treated for an acute stroke. He has no residual neurologic deficits according to the business performance manager, although he does have a history of some type of developmental/behavioral problem. He was putting his sock on in his bathroom this morning and tumbled forward losing his balance, hitting his head on the tile floor. There was no loss of consciousness. His mental status is at baseline since then, although she states he is tired. He did not get a lot of sleep in the hospital and he was just sent home yesterday, he was tired before his fall as well. Patient denies any other injury. He did sustain a laceration. He is on aspirin 325 daily as well as clopidogrel but no anticoagulants. [facility] Medical History (Updated 07/22/20 @ 13:[address] Alex Damon MD) Bundle branch block Hyperlipemia Stroke Home Medications flaxseed oil 1,000 mg PO QHS 12/02/16 [History Last Taken 07/16/20] sertraline 50 mg PO QHS 12/02/16 [History Last Taken 07/16/20] aspirin 325 mg PO QHS 07/17/20 [History Last Taken 07/16/20] atorvastatin 40 mg PO QHS 07/17/20 [History Last Taken 07/16/20] donepezil 10 mg PO QHS 07/17/20 [History Last Taken 07/16/20] magnesium oxide 400 mg PO DAILY 07/17/20 [History Last Taken 07/17/20] memantine 5 mg PO BID 07/17/20 [History Last Taken 07/17/20] clopidogrel [Plavix] 75 mg PO DAILY 07/22/20 [History Last Taken Unknown] Allergy/AdvReac Type Severity Reaction Status Date / Time meloxicam AdvReac Other Verified 07/17/20 13:25 Social History Smoking Status: Never smoker ROS ROS ED Constitutional Constitutional ED: Denies chills or fever(s) Eyes Eyes: Denies change in vision or diplopia ENT ENT ED: Reports as per HPI; Denies rhinorrhea or sore throat Cardiovascular Cardiovascular: Denies chest pain or palpitations Respiratory/Chest Respiratory/Chest: Denies cough or dyspnea Gastrointestinal Gastrointestinal: Denies abdominal pain, diarrhea, nausea or vomiting Genitourinary Genitourinary ED: Denies dysuria or hematuria Musculoskeletal Musculoskeletal: Denies back pain or neck pain Integumentary Reports as per HPI and laceration; Denies abscess or rash Neurologic Neurologic: Denies headache(s), paresthesias or weakness Psychiatric Psychiatric: Denies anxiety or suicidal thoughts EXAM Physical Exam Const Vital Signs: 07/22/20 11:56 07/22/20 12:35 Temperature 97.0 F L Temperature Source Temporal Pulse Rate 64 Respiratory Rate 16 Respiratory Effort Normal Non-Labored Respiratory Depth Normal Respiratory Pattern Normal Blood Pressure 115/65 Blood Pressure Mean 81 Positive well nourished and well developed General Appearance ED: well developed and NAD HEENT Reports moist mucous membranes HEENT Narrative: Trauma only to forehead, no other signs of head trauma. No CSF otorhinorrhea, periorbital ecchymosis, wolfe sign, midface instability or tenderness. normocephalic and trauma Eyes PERRL and EOMs intact bilaterally Neck full ROM and supple Resp normal respiratory effort and clear to auscultation bilaterally Cardio regular rate, regular rhythm and no murmurs GI non-tender and non-distended Auscultation: normoactive bowel sounds Palpation: soft Back/Spine no CVA tenderness General Back: other FROM Extremity normal to inspection General Extremety ED: Negative for edema, pulses abnormal or tenderness General Extremity: Negative for edema or pulses abnormal Neuro oriented x3, CN's II-XII intact bilaterally and no sensory deficits noted Sensorium / Orientation: awake and alert Motor Exam: strength 5/5 throughout Skin no rashes or lesions noted Skin Narrative: 2 cm subcutaneous full-thickness laceration curved and irregular to the left lower forehead does not involve the eyebrow or eyelashes/eyelid. No bone exposed. No crepitance or depression or other evidence of head/face trauma. MDM MDM MDM Narrative Medical decision making narrative: Although head CT shows evidence of acute infarcts, there is no evidence of trauma/fracture/bleeding. I spoke with the radiologist about this, he agrees that these infarcts could be represented by his recent ischemic stroke that he was discharged from [facility] for yesterday. This CT was performed mainly to rule out injury and it was negative for that. I repaired his laceration with 3 sutures, see the procedure note. Removal in 5-6 days. Patient discharged in stable condition, instructions discussed with business performance manager. Radiography Diagnostic Testing: Radiology Impression Brain CT 07/22/20 12:16 IMPRESSION: Acute left frontal and parietal infarcts new since previous examination. No evidence of bleeding. Electronically Signed: Denny Britt MD at 12:47 EDT Tel , Service support , ADDENDUM: 07/22/20 1300 IMPRESSION: Acute left frontal and parietal infarcts new since previous examination. No evidence of bleeding. N.B. : The above information has been verbally conveyed by Denny Britt MD to Alex Damon MD, on 07/22/2020 12:53:06 (ET). Electronically Signed: Denny Britt MD at 12:47 EDT Tel , Service support , Procedures Lacerations Forehead: Length: 2 cm Depth: Sub Q Shape: Stellate Prep: Sterile Conditions and Chlorhexadine Laceration repair: Local (1 cc 2% lidocaine after topical let) Irrigated (ml): 20 Number of Sutures/[place]: 3 Suture Information: Ethilon, Simple and 6-0 Discharge Plan Triage Chief Complaint: Fall ED Provider: Alex Damon Dx/Rx/DC Orders Clinical Impression: Closed head injury without concussion, Forehead laceration Instructions: ED Head Injury (Adult), ED Laceration, Face: Stitches or Tape Prescriptions: No Action flaxseed oil 1,000 MG capsule 1,000 mg PO QHS RF: 0 sertraline 50 MG tablet 50 mg PO QHS RF: 0 atorvastatin 40 mg tablet 40 mg PO QHS RF: 0 donepezil 10 mg tablet 10 mg PO QHS RF: 0 aspirin 81 mg Tablet,Delayed Release (Dr/Ec) 325 mg PO QHS RF: 0 memantine 5 mg tablet 5 mg PO BID RF: 0 magnesium oxide 400 mg magnesium Tablet 400 mg PO DAILY RF: 0 clopidogrel [Plavix] 75 mg Tablet 75 mg PO DAILY RF: 0 Primary Care Provider: Tigre Paredes Referrals: Tigre Paredes MD [Primary Care Provider] - (Or other physician, 5-6 days for suture removal and wound reevaluation) Disposition Disposition: Home, self care
[2020-07-22] MEDS: Lidocaine/Epi/Tetracaine 50 ML 1 APPLIC TOPICAL (12:33)
[2020-07-22 14:20] VITALS: BP 131/77; PULSE 63; RESP 16
== END 2020-07-22 14:15 | disposition home or self-care (01) ==
PROVIDERS: Emergency Provider Emergency Medicine; PCP Family Medicine
DX: S01.81XA Laceration without foreign body of other part of head, initial encounter (principal); W18.30XA Fall on same level, unspecified, initial encounter; Y93.9 Activity, unspecified; Y92.89 Other specified places as the place of occurrence of the external cause; Y99.9 Unspecified external cause status; E78.5 Hyperlipidemia, unspecified; Z86.73 Personal history of transient ischemic attack (TIA), and cerebral infarction without residual deficits; Z79.02 Long term (current) use of antithrombotics/antiplatelets; Z79.1 Long term (current) use of non-steroidal anti-inflammatories (NSAID); Z79.82 Long term (current) use of aspirin
CPT/HCPCS: 12011; 70450; 99284

== ENCOUNTER 2020-08-12 13:54 | Emergency (ER) | payer MEDICARE, MEDICAID, SELFPAY ==
[2020-08-12] VITALS (8 sets, daily range): BP systolic 108–129; BP diastolic 56–76; PULSE 49–65; RESP 14–22; TEMP 36.5; O2SAT 96–98; BMI 23.6
--- NOTE | 2020-08-12 14:58 | EKG12_ITS ---
Test Reason : ALT STATUS Blood Pressure : / mmHG Vent. Rate : 052 BPM Atrial Rate : 052 BPM P-R Int : 188 ms QRS Dur : 090 ms QT Int : 426 ms P-R-T Axes : 054 003 051 degrees QTc Int : 396 ms Sinus bradycardia Nonspecific T wave abnormality Abnormal ECG Confirmed by PETE ALVA, YUSUF ([id number]), book or script editor BHARATI KHAN ([id number]) on 08/14/2020 10:42:46 A M Referred By: MYRIAM Confirmed By:BARRETT FREEMAN MD
[2020-08-12 15:01] LABS: Bedside Glucose 190 mg/dL (70-110)
[2020-08-12 15:16] LABS: Absolute Lymphocyte Count 11.14 X10^3/uL (0.83-4.51); Absolute Neutrophil Count 3.2 X10^3/uL (2.0-7.7); Basophil# 0.03 X10^3/uL; Basophil% 0.2 % (0-1); Eosinophil# 0.13 X10^3/uL; Eosinophils% 0.9 % (0-5); Hematocrit 45.5 % (40-54); Hemoglobin 14.7 g/dL (13.0-16.5); Lymphocyte # 11.14 X10^3/ul (0.83-4.51); Lymphocyte % 74.8 % (19-41); Mean Corp Hgb Conc 32.3 g/dL (32-36); Mean Corpuscular Volume 99.1 fL (80-94); Mean Platelet Vol. 10.3 fl (6.2-12.0); Monocyte# 0.39 X10^3/uL; Monocyte% 2.6 % (0-10); NRBC Flagged by Analyzer 0 % (0-5); Neutrophil # 3.16 X10^3/uL (2.7-7.7); Neutrophil % 21.2 % (47-70); POSITIVE DIFFERENTIAL YES; POSITIVE MORPHOLOGY YES; Platelet Count 165 K/mm3 (150-450); RBC Distribution Width CV 13.3 % (11.6-14.6); RBC Distribution Width SD 48.6 fl (35.1-43.9); Red Blood Count 4.59 M/mm3 (4.6-6.2); White Blood Count 14.9 K/mm3 (4.4-11.0)
[2020-08-12 15:18] LABS: Differential Indicated SCAN CRITERIA MET
--- NOTE | 2020-08-12 15:21 | RAD_ITS ---
STUDY: X-RAY CHEST REASON FOR EXAM: Male, 75 years old. syncope TECHNIQUE: Single AP portable view of the chest. COMPARISON: 07/17/2020. FINDINGS: The lungs are clear and expanded. Clearing of previous bibasilar densities. There is no demonstrated pleural abnormality. Normal size heart. Normal mediastinum and lucille. Normal visualized pulmonary arteries. Normal visualized aortic arch and descending thoracic aorta. Normal visualized thoracic spine. Normal visualized ribs, clavicles, and shoulders. There is no demonstrated abnormality of the visualized soft tissue structures of the upper abdomen. RAD/Chest 1 View (Portable) IMPRESSION: No definite acute or significant abnormality seen. Electronically Signed: Roel Tran MD at 16:19 EDT , Service support ,
--- NOTE | 2020-08-12 15:23 | EDS_ITS ---
HPI History of Present Illness Chief Complaint: Alt LOC Informant: patient and family Onset/Context/Timing Onset: Today Context: Sudden Onset Timing: Intermittent Current Severity: Gone Maximum Severity: Moderate Narrative Narrative: 75-year-old male no prior cardiac history. Within the last several weeks he had a large stroke in which she was life flighted from here to [facility] for stroke intervention. He is done quite well since that time is currently on Plavix and aspirin. Reportedly today was getting a haircut at his long-term care facility and he went unresponsive without a pulse. He had no complaints before that. Family states now he is at his baseline. Patient denies any complaints as does his family member in the room. Prior similar symptoms: No Recent Illness/Hospitalization: Yes PFSH PFS Medical History Bundle branch block Hyperlipemia Stroke Home Medications flaxseed oil 1,000 mg PO QHS 12/02/16 [History Last Taken 07/16/20] sertraline 50 mg PO QHS 12/02/16 [History Last Taken 07/16/20] aspirin 325 mg PO QHS 07/17/20 [History Last Taken 07/16/20] atorvastatin 40 mg PO QHS 07/17/20 [History Last Taken 07/16/20] donepezil 10 mg PO QHS 07/17/20 [History Last Taken 07/16/20] magnesium oxide 400 mg PO DAILY 07/17/20 [History Last Taken 07/17/20] memantine 5 mg PO BID 07/17/20 [History Last Taken 07/17/20] clopidogrel [Plavix] 75 mg PO DAILY 07/22/20 [History Last Taken Unknown] Allergy/AdvReac Type Severity Reaction Status Date / Time meloxicam AdvReac Other Verified 07/17/20 13:25 Surgical History History of carotid endarterectomy History of vasectomy Social History Smoking Status: Never smoker ROS ROS ED ROS Narrative No recent symptoms. Review of Systems ROS Unobtainable: Denies due to encephalopathy Constitutional Constitutional ED: Denies chills or fever(s) Eyes Eyes: Denies change in vision ENT ENT ED: Denies ear pain or sore throat Cardiovascular Cardiovascular: Denies chest pain or palpitations Respiratory/Chest Respiratory/Chest: Denies dyspnea Gastrointestinal Gastrointestinal: Denies abdominal pain, diarrhea, nausea or vomiting Genitourinary Genitourinary ED: Denies dysuria Musculoskeletal Musculoskeletal: Denies myalgias Integumentary Denies rash Neurologic Neurologic: Denies headache(s) Psychiatric Psychiatric: Denies depression Endocrine Endocrinology: Denies polyuria Allergic/Immunologic Allergic/Immunologic ED: Denies urticaria EXAM Physical Exam Narrative Exam Narrative: Well-appearing 75-year-old male. Vital signs are stable afebrile. He is awake alert he is in 0 distress. Family is at bedside. Const Vital Signs: 08/12/20 13:55 08/12/20 13:56 08/12/20 14:59 Temperature 97.7 F L Temperature Source Oral Pulse Rate 53 L 49 L 54 L Respiratory Rate 16 14 18 Blood Pressure 129/69 H 122/63 H 108/56 L Blood Pressure Mean 89 82 73 Pulse Ox 97 96 96 Oxygen Delivery Method Room Air Room Air Room Air 08/12/20 15:16 08/12/20 15:51 08/12/20 16:01 Temperature Temperature Source Pulse Rate 65 61 Respiratory Rate 15 17 Blood Pressure 108/56 L 109/62 Blood Pressure Mean 73 77 Pulse Ox 97 98 97 Oxygen Delivery Method Room Air Room Air Room Air 08/12/20 16:30 Temperature Temperature Source Pulse Rate 60 Respiratory Rate 19 H Blood Pressure 121/71 H Blood Pressure Mean 87 Pulse Ox 96 Oxygen Delivery Method Room Air Positive well nourished and well developed General Appearance ED: well developed HEENT Reports moist mucous membranes Negative for trauma or tenderness Eyes PERRL and EOMs intact bilaterally Neck no lymphadenopathy and supple Chest Wall inspection of chest normal and palpation of chest normal Resp normal respiratory effort and clear to auscultation bilaterally Cardio regular rate, regular rhythm, S1 normal heart sound, S2 normal heart sound and no murmurs Rate: bradycardia; Negative for tachycardic GI normal to inspection, nondistended, normoactive bowel sounds, non-tender, non- distended and no masses Auscultation: normoactive bowel sounds Palpation: soft; Negative for tender Back/Spine no CVA tenderness Extremity normal to inspection General Extremety ED: Negative for edema or tenderness General Extremity: Negative for edema Neuro CN's II-XII intact bilaterally Neuro Narrative: Patient knows he is in the hospital. He knew it was July. Family at bedside said this is his baseline and he is normally somewhat confused. Sensorium / Orientation: alert Motor Exam: strength 5/5 throughout Psych mental status grossly normal Skin no rashes or lesions noted MDM MDM MDM Narrative Medical decision making narrative: Older male recent stroke presents with a syncopal episode at F but has a DNR status. Repeat exam patient is doing well at 5:15 PM. States he feels fine. Patient and his sister myself went over the labs. She is comfortable taking him home. She and I discussed the possibility of this being a cardiac event or dysrhythmia and with his overall history and his DNR status they did not want anything more aggressive done. She did not want him admitted to the hospital. Lab Data Attestation: I reviewed the patient's lab results. Lab results narrative: CBC shows an elevated white count of 14.9 which she has had on multiple prior blood counts. Hemoglobin 14. Chemistries unremarkable gap of 8. Creatinine 1.4 troponin normal. Labs: Laboratory Results - last 24 hr 08/12/20 08/12/20 08/12/20 14:16 14:16 14:16 WBC 14.9 H RBC 4.59 L Hgb 14.7 Hct 45.5 MCV 99.1 H MCH 32.0 MCHC 32.3 RDW Std Deviation 48.6 H RDW Coeff of [place]upe 13.3 Plt Count 165 MPV 10.3 Immature Gran % (Auto) 0.300 Neut % (Auto) 21.2 L Lymph % (Auto) 74.8 H Charlton % (Auto) 2.6 Eos % (Auto) 0.9 Baso % (Auto) 0.2 Absolute Neuts (auto) 3.2 Absolute Lymphs (auto) 11.14 H Nucleated RBC % 0 Diff Path Review May foll Atypical Lymphocytes RARE Reactive Lymphocytes WELL LOGGING OPERATOR MUD ANALYSIS Smudge Cells 1+ H Sodium 140 Potassium 5.1 Chloride 109 H Carbon Dioxide 23.0 Anion Gap 8 BUN 16 Creatinine 1.40 H Estim Creat Clear Calc 50.81 Est GFR (MDRD) Af Amer 64 Est GFR (MDRD) Non-Af 53 L BUN/Creatinine Ratio 11.4 Glucose 179 H Calcium 9.0 Troponin I < 0.015 POC Glucose 08/12/20 14:56 WBC RBC Hgb Hct MCV MCH MCHC RDW Std Deviation RDW Coeff of [place] Plt Count MPV Immature Gran % (Auto) Neut % (Auto) Lymph % (Auto) Charlton % (Auto) Eos % (Auto) Baso % (Auto) Absolute Neuts (auto) Absolute Lymphs (auto) Nucleated RBC % Diff Path Review Atypical Lymphocytes Reactive Lymphocytes Smudge Cells Sodium Potassium Chloride Carbon Dioxide Anion Gap BUN Creatinine Estim Creat Clear Calc Est GFR (MDRD) Af Amer Est GFR (MDRD) Non-Af BUN/Creatinine Ratio Glucose Calcium Troponin I POC Glucose 190 H Radiography Chest X-Ray - ED: 1 View, Read by ED Physician, Read by Radiologist, Normal, Heart, Lungs, Mediastinum, Bony Structures, No Acute Disease and Chronic Changes Diagnostic Testing: Radiology Impression Chest X-Ray 08/12/20 15:21 IMPRESSION: No definite acute or significant abnormality seen. Electronically Signed: Roel Tran MD at 16:19 EDT , Service support , Chronic changes. Rhythm Strip Rhythm Strip: Sinus Rhythm Rate: 52 Ectopy: None EKG Initial EKG: Attestation: I personally reviewed and interpreted this EKG as follows: Interpretation: Sinus Rhythm, No Acute Injury Pattern and Sinus Bradycardia Comments: Sinus bradycardia rate of 52 no specific change from prior EKG from June of this year. Discharge Plan Triage Chief Complaint: Alt LOC ED Provider: Quang Kat Dx/Rx/DC Orders Clinical Impression: Syncope Instructions: ED Fainting, Uncertain Cause Prescriptions: No Action flaxseed oil 1,000 MG capsule 1,000 mg PO QHS RF: 0 sertraline 50 MG tablet 50 mg PO QHS RF: 0 atorvastatin 40 mg tablet 40 mg PO QHS RF: 0 donepezil 10 mg tablet 10 mg PO QHS RF: 0 aspirin 81 mg Tablet,Delayed Release (Dr/Ec) 325 mg PO QHS RF: 0 memantine 5 mg tablet 5 mg PO BID RF: 0 magnesium oxide 400 mg magnesium Tablet 400 mg PO DAILY RF: 0 clopidogrel [Plavix] 75 mg Tablet 75 mg PO DAILY RF: 0 Primary Care Provider: Tigre Paredes Referrals: Tigre Paredes MD [Primary Care Provider] - As Needed Activity Restrictions/Additional Instructions: Follow-up with your doctor as needed. Disposition Disposition: Home, self care
[2020-08-12 15:26] LABS: Anion Gap 8 (5-15); BUN 16 mg/dL (7-18); BUN/Creat Ratio 11.4 RATIO (10-20); Chloride 109 mmol/L (98-107); EST Glomerular Filtration Rate 53 mL/min (>60); Est Glom Filt Rate - Afr Amer 64 mL/min (>60); Estimated Creatinine Clearance 50.81 ml/min; Glucose 179 mg/dL (74-106); Potassium 5.1 mmol/L (3.5-5.1); Sodium Level 140 mmol/L (136-145)
[2020-08-12 15:50] LABS: Atypical Lymphocyte RARE %; Smudge Cells 1+
[2020-08-14 12:44] LABS: Pathologist Review Reviewed
== END 2020-08-12 18:09 | disposition home or self-care (01) ==
PROVIDERS: Emergency Provider Emergency Medicine; PCP Family Medicine
DX: R55 Syncope and collapse (principal); R00.1 Bradycardia, unspecified; E78.5 Hyperlipidemia, unspecified; Z66 Do not resuscitate; Z98.52 Vasectomy status; Z86.73 Personal history of transient ischemic attack (TIA), and cerebral infarction without residual deficits; Z79.02 Long term (current) use of antithrombotics/antiplatelets; Z79.1 Long term (current) use of non-steroidal anti-inflammatories (NSAID); Z79.82 Long term (current) use of aspirin
CPT/HCPCS: 71045; 80048; 82962; 84484; 85025; 93005; 96360; 96361; 99285; A4216

== ENCOUNTER → 2020-09-28 08:35 | Outpatient (CLI) | payer MEDICARE, MEDICAID, SELFPAY ==
[2020-08-12 13:56] VITALS: BMI 23.6
[2020-09-28 10:10] LABS: Absolute Lymphocyte Count 7.06 X10^3/uL (0.83-4.51); Absolute Neutrophil Count 2.5 X10^3/uL (2.0-7.7); Basophil# 0.04 X10^3/uL; Basophil% 0.4 % (0-1); Hematocrit 41.4 % (40-54); Lymphocyte # 7.06 X10^3/ul (0.83-4.51); Lymphocyte % 69.8 % (19-41); Mean Corp Hgb Conc 33.8 g/dL (32-36); Mean Corpuscular Hgb 32.5 pg (27.0-32.0); Mean Corpuscular Volume 96.1 fL (80-94); Mean Platelet Vol. 10.6 fl (6.2-12.0); NRBC Flagged by Analyzer 0 % (0-5); Neutrophil # 2.48 X10^3/uL (2.7-7.7); Neutrophil % 24.5 % (47-70); POSITIVE DIFFERENTIAL YES; Platelet Count 174 K/mm3 (150-450); RBC Distribution Width CV 13.5 % (11.6-14.6); RBC Distribution Width SD 47.6 fl (35.1-43.9); Red Blood Count 4.31 M/mm3 (4.6-6.2); White Blood Count 10.1 K/mm3 (4.4-11.0)
[2020-09-28 10:16] LABS: Differential Indicated SCAN CRITERIA MET
[2020-09-28 10:29] LABS: Vitamin B12 328 pg/mL (211-911)
[2020-09-28 10:44] LABS: ALB/GLOB Ratio 1.3 RATIO (0.9-2.4); AST(SGOT) 20 U/L (15-37); Alanine Aminotransfer ALT/SGPT 30 U/L (16-61); Albumin, Serum 3.8 g/dL (3.2-5.0); Alkaline Phosphatase 85 U/L (45-117); Anion Gap 9 (5-15); BUN 15 mg/dL (7-18); BUN/Creat Ratio 16.1 RATIO (10-20); Chloride 108 mmol/L (98-107); Creatinine, Serum 0.93 mg/dL (0.70-1.30); EST Glomerular Filtration Rate 84 mL/min (>60); Est Glom Filt Rate - Afr Amer 102 mL/min (>60); Glucose 88 mg/dL (74-106); PSA,Total - Annual Screen 7.45 ng/mL (0.00-4.00); Potassium 3.9 mmol/L (3.5-5.1); Protein, Total 6.8 g/dL (6.4-8.2); Sodium Level 140 mmol/L (136-145); Thyroid Stim Hormone (TSH) 2.29 uIU/mL (0.358-3.74)
== END ==
PROVIDERS: PCP Family Medicine; Referring Provider Family Medicine; Visit Provider Family Medicine
DX: D72.820 Lymphocytosis (symptomatic) (principal); R97.20 Elevated prostate specific antigen [PSA]; F03.90 Unspecified dementia, unspecified severity, without behavioral disturbance, psychotic disturbance, mood disturbance, and anxiety
CPT/HCPCS: 36415; 80053; 82607; 84153; 84443; 85025; G0103

== ENCOUNTER 2020-11-01 13:48 | Emergency (ER) | payer MEDICARE, MEDICAID, SELFPAY ==
[2020-11-01 13:49] VITALS: BP 118/68; PULSE 67; RESP 15; TEMP 36.6; O2SAT 98; BMI 23.6
--- NOTE | 2020-11-01 18:11 | CT_ITS ---
EXAMINATION : Head CT w/out contrast HISTORY : Injury/Pain COMPARISON : 07/22/2020. TECHNIQUE : Multiple contiguous axial images were obtained from the skull base to the vertex without intravenous contrast. A radiation dose optimization technique was used for this scan. FINDINGS : There is no evidence for acute intracranial hemorrhage, mass effect, or midline shift. There is no extra-axial fluid collection. There are periventricular white matter changes consistent with chronic microvascular ischemic disease. There is sulcal widening and ventricular enlargement consistent with cerebral atrophy. There is normal moody-white differentiation, without CT evidence of acute ischemia or infarct. Left frontoparietal encephalomalacia. The skull base and calvarium are unremarkable. The orbits are unremarkable. The paranasal sinuses are clear. The mastoid air cells are well-aerated. The soft tissues are unremarkable. CT/Brain/Head without Contrast IMPRESSION: No acute intracranial abnormality. Left frontoparietal encephalomalacia. Chronic involutional and ischemic changes of the brain. Electronically Signed: Christopher Garg MD at 18:52 EDT Tel , Service support ,
[2020-11-01] MEDS: Diphth,Pertuss(Acell),Tet Vac 0.5 ML Vial IM (18:42)
--- NOTE | 2020-11-01 19:13 | EX.ED.GENINJ ---
HPI History of Present Illness Chief Complaint: Head Injury Informant: patient Onset/Context/Timing Onset: Today Narrative Narrative: Patient is a 75-year-old male presenting from senior care for concern of head injury. Just prior to arrival of picture frame fell off the wall and hit him in the head. No loss of consciousness. Patient helped immediately. Patient did have a small abrasion to the top of his head. Per senior care policy he was brought to the emergency room to be evaluated. Patient is on Plavix as he did recently have a stroke 2 months ago. 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 They are not sure when his last tetanus was. No other complaints at this time. Tetanus Immunization: Unknown [facility] Medical History Bundle branch block Hyperlipemia Stroke Home Medications flaxseed oil 1,000 mg PO QHS 12/02/16 [History Last Taken 07/16/20] sertraline 50 mg PO QHS 12/02/16 [History Last Taken 07/16/20] aspirin 325 mg PO QHS 07/17/20 [History Last Taken 07/16/20] atorvastatin 40 mg PO QHS 07/17/20 [History Last Taken 07/16/20] donepezil 10 mg PO QHS 07/17/20 [History Last Taken 07/16/20] magnesium oxide 400 mg PO DAILY 07/17/20 [History Last Taken 07/17/20] memantine 5 mg PO BID 07/17/20 [History Last Taken 07/17/20] clopidogrel [Plavix] 75 mg PO DAILY 07/22/20 [History Last Taken Unknown] Allergy/AdvReac Type Severity Reaction Status Date / Time meloxicam AdvReac Other Verified 11/01/20 13:51 Surgical History History of carotid endarterectomy History of vasectomy Social History Smoking Status: Never smoker ROS ROS ED Constitutional Constitutional ED: Denies chills, fever(s) or malaise Eyes Eyes: Denies blurry vision or loss of vision ENT ENT ED: Denies rhinorrhea or sore throat Cardiovascular Cardiovascular: Denies chest pain or dizziness Respiratory/Chest Respiratory/Chest: Denies cough or dyspnea Gastrointestinal Gastrointestinal: Denies nausea or vomiting Genitourinary Genitourinary ED: Denies dysuria or hematuria Musculoskeletal Musculoskeletal: Denies arthralgias or myalgias Integumentary Reports Abrasions; Denies rash or wounds Neurologic Neurologic: Denies focal weakness, headache(s) or weakness Psychiatric Psychiatric: Denies anxiety or behavioral changes EXAM Physical Exam Const Vital Signs: 11/01/20 13:49 11/01/20 18:45 Temperature 97.8 F Temperature Source Oral Pulse Rate 67 Respiratory Rate 15 Respiratory Effort Normal Non-Labored Blood Pressure 118/68 Blood Pressure Mean 84 Pulse Ox 98 Oxygen Delivery Method Room Air Positive well nourished, well developed and no apparent distress General Appearance ED: well developed HEENT Reports normocephalic and TM's clear HEENT Narrative: No palpable skull fracture. Abrasion to the top of the head with some mild associated swelling. No hematoma appreciated. trauma; Negative for tenderness Nose: no nasal discharge External Ear: external ears normal Tympanic Membrane ED: Yes TM's clear Mouth ED: Yes moist mucous membranes normal Eyes PERRL and EOMs intact bilaterally Neck full ROM and no meningeal signs Chest Wall inspection of chest normal Resp normal respiratory effort and normal air movement Cardio regular rate and regular rhythm Rate: regular rate GI normal to inspection, nondistended, normoactive bowel sounds Back/Spine normal to inspection Extremity normal to inspection and full ROM Neuro oriented x3, CN's II-XII intact bilaterally, moves all extremities, no focal motor deficits and no sensory deficits noted Neuro Narrative: Normal [id number]. [place] Coma Scale: document GCS findings Spontaneous Obeys Commands Oriented 15 Sensorium / Orientation: alert Motor Exam: strength 5/5 throughout Psych mental status grossly normal and thought process normal Skin no rashes or lesions noted and no wounds MDM MDM MDM Narrative Medical decision making narrative: Patient evaluated after a head injury where a picture frame fell off the wall and hit his head. They state it was quite a large picture frame. CT does not show any acute process. There is no skull fracture or intracranial bleed. Tetanus is updated. Localized wound care was applied however patient does not require naveen or suturing. Will be discharged back to senior care. Radiography Diagnostic Testing: Radiology Impression Brain CT 11/01/20 18:11 IMPRESSION: No acute intracranial abnormality. Left frontoparietal encephalomalacia. Chronic involutional and ischemic changes of the brain. Electronically Signed: Christopher Garg MD at 18:52 EDT Tel , Service support , Discharge Plan Triage Chief Complaint: Head Injury ED Provider: Kassie Krishnan Dx/Rx/DC Orders Clinical Impression: Closed head injury without concussion, Abrasion of scalp, Need for [id number] (Tdap) vaccine Instructions: ED Abrasion, ED Head Injury (Adult) Prescriptions: No Action flaxseed oil 1,000 MG capsule 1,000 mg PO QHS RF: 0 sertraline 50 MG tablet 50 mg PO QHS RF: 0 atorvastatin 40 mg tablet 40 mg PO QHS RF: 0 donepezil 10 mg tablet 10 mg PO QHS RF: 0 aspirin 81 mg Tablet,Delayed Release (Dr/Ec) 325 mg PO QHS RF: 0 memantine 5 mg tablet 5 mg PO BID RF: 0 magnesium oxide 400 mg magnesium Tablet 400 mg PO DAILY RF: 0 clopidogrel [Plavix] 75 mg Tablet 75 mg PO DAILY RF: 0 Primary Care Provider: Tigre Paredes Referrals: Tigre Paredes MD [Primary Care Provider] - Disposition Disposition: NonSkilled [place]/Intermed Care
[2020-11-01 19:33] VITALS: BP 145/85; PULSE 71; RESP 18; O2SAT 97
== END 2020-11-01 19:34 | disposition home or self-care (01) ==
PROVIDERS: Emergency Provider Emergency Medicine; PCP Family Medicine
DX: S00.01XA Abrasion of scalp, initial encounter (principal); W20.8XXA Other cause of strike by thrown, projected or falling object, initial encounter; Y93.9 Activity, unspecified; Y92.199 Unspecified place in other specified residential institution as the place of occurrence of the external cause; Y99.9 Unspecified external cause status; Z23 Encounter for immunization; E78.5 Hyperlipidemia, unspecified; I67.82 Cerebral ischemia; G93.89 Other specified disorders of brain; Z79.1 Long term (current) use of non-steroidal anti-inflammatories (NSAID); Z79.82 Long term (current) use of aspirin; Z86.73 Personal history of transient ischemic attack (TIA), and cerebral infarction without residual deficits
CPT/HCPCS: 70450; 90715; 99283

== ENCOUNTER 2021-03-06 17:26 | Outpatient (CLI) | payer MEDICARE, MEDICAID, SELFPAY ==
[2021-03-06 17:53] LABS: Absolute Lymphocyte Count 22.41 X10^3/uL (0.83-4.51); Absolute Neutrophil Count 4.7 X10^3/uL (2.0-7.7); Basophil# 0.06 X10^3/uL; Basophil% 0.2 % (0-1); Eosinophil# 0.04 X10^3/uL; Eosinophils% 0.1 % (0-5); Hematocrit 42.1 % (40-54); Hemoglobin 13.4 g/dL (13.0-16.5); Lymphocyte # 22.41 X10^3/ul (0.83-4.51); Mean Corp Hgb Conc 31.8 g/dL (32-36); Mean Corpuscular Hgb 30.7 pg (27.0-32.0); Mean Corpuscular Volume 96.6 fL (80-94); Mean Platelet Vol. 10.1 fl (6.2-12.0); Monocyte# 0.36 X10^3/uL; Monocyte% 1.3 % (0-10); NRBC Flagged by Analyzer 0 % (0-5); Neutrophil # 4.73 X10^3/uL (2.7-7.7); Neutrophil % 17.2 % (47-70); POSITIVE DIFFERENTIAL YES; POSITIVE MORPHOLOGY YES; Platelet Count 303 K/mm3 (150-450); RBC Distribution Width SD 46.5 fl (35.1-43.9); Red Blood Count 4.36 M/mm3 (4.6-6.2); White Blood Count 27.7 K/mm3 (4.4-11.0)
[2021-03-06 17:55] LABS: Differential Indicated SCAN CRITERIA MET
[2021-03-06 18:17] LABS: ALB/GLOB Ratio 0.7 RATIO (0.9-2.4); AST(SGOT) 47 U/L (15-37); Alanine Aminotransfer ALT/SGPT 114 U/L (16-61); Alkaline Phosphatase 104 U/L (45-117); Anion Gap 12 (5-15); BUN 24 mg/dL (7-18); BUN/Creat Ratio 20.7 RATIO (10-20); Calcium,Total 9.1 mg/dL (8.5-10.1); Chloride 104 mmol/L (98-107); Creatinine, Serum 1.16 mg/dL (0.70-1.30); EST Glomerular Filtration Rate 65 mL/min (>60); Est Glom Filt Rate - Afr Amer 79 mL/min (>60); Globulin 4.6 g/dL (2.2-4.2); Glucose 114 mg/dL (74-106); Protein, Total 7.6 g/dL (6.4-8.2); Sodium Level 141 mmol/L (136-145)
[2021-03-06 18:55] LABS: Anisocytosis RARE; Macrocytosis RARE; Platelet Estimate ADEQUATE (ADEQ); Reactive Lymphocyte 3+; Red Cell Morphology N CHROM NORMAL (NORM C&C)
[2021-03-07 08:45] LABS: Hepatitis C Antibody Non-Reactive (Nonreactive); Vitamin D,25 Hydroxy 16.7 ng/mL
[2021-03-07 13:15] LABS: Pathologist Review Reviewed
== END 2021-03-06 23:59 | disposition short-term general hospital (02) ==
LOC: LAB 17:29
PROVIDERS: PCP Family Medicine Geriatric Medicine; Referring Provider Family Medicine Geriatric Medicine; Visit Provider Family Medicine Geriatric Medicine
DX: R53.83 Other fatigue (principal); E55.9 Vitamin D deficiency, unspecified; Z13.89 Encounter for screening for other disorder
CPT/HCPCS: 36415; 80053; 82306; 84443; 85025; 86803

== ENCOUNTER 2021-06-04 10:49 | Outpatient (CLI) | payer MEDICARE, MEDICAID, SELFPAY ==
[2021-06-04 12:22] LABS: Absolute Lymphocyte Count 7.94 X10^3/uL (0.83-4.51); Absolute Neutrophil Count 2.6 X10^3/uL (2.0-7.7); Basophil# 0.04 X10^3/uL; Basophil% 0.4 % (0-1); Eosinophil# 0.09 X10^3/uL; Eosinophils% 0.8 % (0-5); Hematocrit 41.7 % (40-54); Hemoglobin 13.5 g/dL (13.0-16.5); Lymphocyte # 7.94 X10^3/ul (0.83-4.51); Lymphocyte % 71.2 % (19-41); Mean Corp Hgb Conc 32.4 g/dL (32-36); Mean Corpuscular Hgb 31.8 pg (27.0-32.0); Mean Corpuscular Volume 98.1 fL (80-94); Mean Platelet Vol. 10.2 fl (6.2-12.0); Monocyte# 0.42 X10^3/uL; Monocyte% 3.8 % (0-10); NRBC Flagged by Analyzer 0 % (0-5); Neutrophil # 2.63 X10^3/uL (2.7-7.7); Neutrophil % 23.5 % (47-70); POSITIVE DIFFERENTIAL YES; POSITIVE MORPHOLOGY YES; Platelet Count 171 K/mm3 (150-450); RBC Distribution Width CV 14.6 % (11.6-14.6); RBC Distribution Width SD 52.5 fl (35.1-43.9); Red Blood Count 4.25 M/mm3 (4.6-6.2); White Blood Count 11.2 K/mm3 (4.4-11.0)
[2021-06-04 12:24] LABS: Differential Indicated SCAN CRITERIA MET
[2021-06-04 12:36] LABS: Vitamin D,25 Hydroxy 17.6 ng/mL
[2021-06-04 13:03] LABS: AST(SGOT) 17 U/L (15-37); Alanine Aminotransfer ALT/SGPT 27 U/L (16-61); Albumin, Serum 3.6 g/dL (3.2-5.0); Alkaline Phosphatase 89 U/L (45-117); Anion Gap 7 (5-15); BUN 13 mg/dL (7-18); BUN/Creat Ratio 11.7 RATIO (10-20); Calcium,Total 8.8 mg/dL (8.5-10.1); Chloride 110 mmol/L (98-107); Creatinine, Serum 1.11 mg/dL (0.70-1.30); EST Glomerular Filtration Rate 69 mL/min (>60); Est Glom Filt Rate - Afr Amer 83 mL/min (>60); Globulin 3.6 g/dL (2.2-4.2); Glucose 97 mg/dL (74-106); Potassium 3.5 mmol/L (3.5-5.1); Protein, Total 7.2 g/dL (6.4-8.2); Sodium Level 142 mmol/L (136-145); Thyroid Stim Hormone (TSH) 2.67 uIU/mL (0.358-3.74)
[2021-06-04 13:05] LABS: Reactive Lymphocyte RARE
== END 2021-06-04 23:59 | disposition home or self-care (01) ==
LOC: POLAB3 10:53
PROVIDERS: PCP Family Medicine Geriatric Medicine; Visit Provider Family Medicine Geriatric Medicine
DX: E55.9 Vitamin D deficiency, unspecified (principal); R53.83 Other fatigue
CPT/HCPCS: 36415; 80053; 82306; 84443; 85025

== ENCOUNTER 2021-07-03 14:23 | Day surgery (SDC) | payer MEDICARE, MEDICAID, SELFPAY ==
--- NOTE | 2021-07-03 | IMM_PTH ---
PATIENT: PETE PLATT LOC: EN U#:[id number] AGE/SX: 76/M ROOM: RE07/03/[address]: Dr. Castro Mensah DO : 1945 BED: DIS: 07/03/2021 SPEC #: [id number] RECD: 07/05/21 13:47 STATUS: BANDAR REAngie #: [id number] MAJOR: 07/03/21 00:[address]: Castro Mensah DEPT: IMMUNOHISTOCHEMISTRY RECD BY: Abena Vieyra ENTERED: 07/05/21 13:47 SP TYPE: IMMUNO OTHR DR: Dr. Joel Waters MD Tissues: A - Esophagus, NOS Procedures: P53 (initial) KI-67 (add) PHYSICIAN & INSTITUTION [place] [id number] SPECIMEN INFORMATION: Tissue Source: A ? Distal esophagus biopsy Clinical Info: Dysphagia Specimen Number: [id number] CPT code: 97835, 82459 METHODOLOGY: Deparaffinized sections of prefer/formalin-fixed tissue or PAP/DQ stained slides are incubated with monoclonal/polyclonal antibodies/oligonucleotide probes. Localization is made via biotin free immunoperoxidase method. Appropriate controls are performed and reacted as expected. Results on target cell population are indicated in the following table: RESULTS: ANTIBODY / CLONE RESULT Block A P53 (DO-7) negative Ki-67 (30-9) positive, low These tests were developed and their performance characteristics determined by [facility]. They may not have been cleared or approved by the U.S. Food and Drug Administration. The FDA has determined that such clearance or approval is not necessary. The above immunohistochemical/dualISH markers are ordered and reviewed by the Pathologist. INTERPRETATION: A. Distal esophagus, biopsy: No evidence of dysplasia. AM:jaki 07/06/2021
[2021-07-03 14:58] VITALS: BP 140/75; PULSE 55; RESP 16; TEMP 36.6; O2SAT 98; BMI 22.6
[2021-07-03] MEDS: Lactated Ringers 1,000 ML 15 ML IV (15:03)
--- NOTE | 2021-07-03 15:30 | EGD_PTH ---
PATIENT: PETE PLATT LOC: EN U#:[id number] AGE/SX: 76/M ROOM: RE07/03/[address]: Dr. Castro Mensah DO : 1945 BED: DIS: 07/03/2021 SPEC #: [id number] RECD: 07/03/21 16:19 STATUS: BANDAR STEPHANIE #: [id number] MAJOR: 07/03/21 15:[address]: Castro Mensah DEPT: SURGICAL PATHOLOGY RECD BY: Victorino Falcon ENTERED: 07/04/21 09:41 SP TYPE: EGD BIOPSY ADRIANA DR: Dr. Joel Waters MD Tissues: A - Esophagus, NOS B - Duodenum, NOS Procedures: Special Stain Group II Surgery Specimen Level IV Alcian Blue/PAS (control) HEADER OPERATION: EGD (MAC), biopsy, dilation PRE-OP DIAGNOSIS: Dysphagia TISSUE SUBMITTED: A ? Distal esophagus biopsy, B ? Duodenum biopsy MICROSCOPIC DIAGNOSIS A. Distal esophagus, biopsy: Gastroesophageal junctional mucosa with moderate chronic inflammation. Changes of reflux. 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 No evidence of dysplasia. See comment. B. Duodenum, biopsy: No pathologic change. AM:jaki 07/05/2021 COMMENT A. Alcian blue/PAS stain with matched control supports the above diagnosis. Immunohistochemistry ([id number]) for P53 and Ki-67 will be performed and results will be reported separately. MICROSCOPIC DESCRIPTION Slides are reviewed. GROSS DESCRIPTION A - Received in fixative is one container labeled with the patient's name and designated distal esophagus biopsy. The specimen consists of two irregular fragments of light soto soft tissue that in aggregate measure 0.6 x 0.3 x 0.1 cm. The specimen is totally submitted in one cassette. B - Received in fixative is one container labeled with the patient's name and designated duodenum biopsy. The specimen consists of two irregular fragments of light soto soft tissue that in aggregate measure 0.6 x 0.3 x 0.1 cm. The specimen is totally submitted in one cassette. / SJ:jaki 07/04/2021 TC:3 CPT: 46553 x2, 73103
--- NOTE | 2021-07-03 15:35 | PCM.HP.BLA ---
History and Physical Date of Admission: 07/03/21 PETE PLATT, is a 76 M who presents to the office today for esophageal dysphagia and weight loss. He has a diagnosis of CLL that is in remission as per the patient. Almost all of the history is obtained from his sister who is with him during this initial office visit. He presents today for evaluation of fatigue, esophagus and weight loss. he began having mouth pain and emesis; PCP and ENT evaluated without abnormal workups. He also has mouth pain associated with thrush. Sister reports that he has coughing spells, however he eats very quickly and eats a lot of food. She also reports weight loss of 22lbs from to now; he has started to put a couple pounds back on. Denies abdominal pain, diarrhea and constipation. He lives in a half-way with [employer], this home has moved last week. Sister reports that dementia has been getting worse recently. Father had a reported hereditary issue which the esophagus ?looked like spaghetti? and took several medications and then used botox which was helpful for many years. Additional medical history includes CLL (oncologist Dr. 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 he had a stroke. Stents placed in carotid artery . ROS Const Constitutional: No anorexia, fatigue, fever(s), weight change or sleep problems Eyes Eyes: No change in vision ENT ENT: No abnormal hearing, difficulty swallowing, mouth lesions, tongue swelling or throat swelling Resp Respiratory: No cough or shortness of breath Cardio Cardiology: No chest pain at rest, chest pain with exertion, shortness of breath or dyspnea on exertion Gastro GI: No difficulty swallowing Genitourinary Male: No difficulty urinating or burning urination Musc Musculoskeletal: No joint pain, joint swelling, muscle weakness or decreased muscle mass Skin Skin: No hair loss in leg, yellowing of the eye, itchy eyes, rash, skin ulcer or skin swelling Neuro Neurology: No abnormal hearing, abnormal movements, confusion, unsteady gait/balance or memory loss Psych Psychiatric: No anxiety, No confusion and No memory loss Endo Endocrine: No fatigue or weight change Aller/Imm Allergy/Immunologic: No itchy eyes, throat swelling or tongue swelling Stefan/Lymp Hematologic/Lymphatic: No easy bleeding, easy bruising or enlarged lymph nodes Exam Const General: cooperative and comfortable Nutritional Appearance: average body habitus and well nourished [facility] Head: normal to inspection Ears: hearing grossly normal bilaterally Nose: external nose normal Face and sinus: normal facial exam Mouth: oral mucosae normal Throat: posterior oropharynx normal Eyes General: appearance normal, both eyes and all related structures Neck Neck: normal visual inspection Chest Chest palpation & inspection: normal inspection of the chest and normal palpation of entire chest wall Resp Effort & Inspection: normal respiratory effort Auscultation: Bilateral: Clear to Auscultation Cardio Palpation: normal PMI Rate: regular rate Rhythm: regular rhythm GI Inspection: normal to inspection Auscultation: normal bowel sounds Percussion: normal to percussion Palpation: no hepatosplenomegaly Skin General: no rashes or lesions noted Neuro General: patient alert Extrem General: normal to inspection Psych Affect: normal affect Quality Reporting Tobacco Screening ([facility] 138) Smoking Status: Never smoker Assessment and Plan Assessment and Plan (1) Dysphagia: Plan - Lisa Ferrara: egd Plan - Dr. Erazo Friend, DO: The differential diagnosis for esophageal dysphagia does include Jesica esophagitis, esophagitis, eosinophilic esophagitis, esophageal dysmotility disorder. We will perform an upper endoscopy evaluate his upper GI tract. The patient and the patient's sister uses power of attorney at law was explained alternatives, risk, benefits including not withstanding bleeding, infection, sepsis, perforation, need for emergent . He will have an ASA of 3. I have re-examined the patient. There are no clinical changes since date of exam.
[2021-07-03 16:06] VITALS: BP 118/66; BP 140/75; PULSE 58; RESP 16; TEMP 36.3; O2SAT 98
[2021-07-03 16:10] VITALS: BP 123/72; BP 140/75; PULSE 56; RESP 16; O2SAT 98
--- NOTE | 2021-07-03 16:12 | OP.CCLET_ITS ---
11/23/2021 Joel Waters MD [address] [place] [address] Re : Upper GI endoscopy procedure for Martínez Ardon Dear Dr. Waters This procedure was performed on Saturday, July 03, 2021. My impressions and recommendations are as follows: Impressions : - Esophageal mucosal changes suspicious for short-segment Lisa's esophagus. Biopsied. - Moderate Schatzki ring. Dilated. - Medium-sized hiatal hernia. - Duodenitis. Biopsied. Recommendations : - Written discharge instructions were provided to the patient. - The signs and symptoms of potential delayed complications were discussed with the patient. - Patient has a contact number available for emergencies. - Return to normal activities tomorrow. - Resume previous diet. - Continue present medications. - Await pathology results. My findings are described in the full procedure note, which is enclosed. If I can be of further assistance, please feel free to contact me at . Sincerely, Castro Mensah, 07/03/2021 4:11:24 PM This report has been signed electronically.
--- NOTE | 2021-07-03 16:12 | OP.EGD_ITS ---
Patient Name: Martínez Ardon Procedure Date: 07/03/2021 3:31 PM Date of : 1945 Age: 76 Procedure: Upper GI endoscopy Indications: Dysphagia Providers: Castro Mensah DO Medicines: Monitored Anesthesia Care Patient Profile: This is a 76 year old male. Refer to note in patient chart for documentation of history and physical. Patient has symptoms of chronic dysphagia. Complications: No immediate complications. Procedure: Pre-Anesthesia Assessment: - Prior to the procedure, a History and Physical was performed, and patient medications and allergies were reviewed. The risks and benefits of the procedure and the sedation options and risks were discussed with the patient. All questions were answered and informed consent was obtained. Patient identification and proposed procedure were verified by the physician in the pre-procedure area. Mental Status Examination: alert and oriented. Airway Examination: normal oropharyngeal airway and neck mobility. Respiratory Examination: clear to auscultation. CV Examination: normal. Prophylactic Antibiotics: The patient does not require prophylactic antibiotics. Prior Anticoagulants: The patient has taken no previous anticoagulant or antiplatelet agents. After reviewing the risks and benefits, the patient was deemed in satisfactory condition to undergo the procedure. The anesthesia plan was to use moderate sedation / analgesia (conscious sedation). Immediately prior to administration of medications, the patient was re-assessed for adequacy to receive sedatives. The heart rate, respiratory rate, oxygen saturations, blood pressure, adequacy of pulmonary ventilation, and response to care were monitored throughout the procedure. The physical status of the patient was re-assessed after the procedure. After obtaining informed consent, the endoscope was passed under direct vision. Throughout the procedure, the patient's blood pressure, pulse, and oxygen saturations were monitored continuously. The Endoscope was introduced through the mouth, and advanced to the second part of duodenum. The upper GI endoscopy was accomplished without difficulty. The patient tolerated the procedure well. Scope In: 3:43:35 PM Scope Out: 3:53:08 PM Total Procedure Duration Time 0 hours 9 minutes 33 seconds Findings: There were esophageal mucosal changes suspicious for short-segment Lisa's esophagus present in the lower third of the esophagus. The maximum longitudinal extent of these mucosal changes was 1 cm in length. Mucosa was biopsied with a cold forceps for histology in a targeted manner at intervals of 1 cm in the lower third of the esophagus. One specimen bottle was sent to pathology. Verification of patient identification for the specimen was done. Estimated blood loss was minimal. A moderate Schatzki ring was found in the middle third of the esophagus. A guidewire was placed and the scope was withdrawn. Dilation was performed with a Savary dilator with no resistance at 60 Fr. The dilation site was examined following endoscope reinsertion and showed moderate improvement in luminal narrowing. Estimated blood loss: none. A medium-sized hiatal hernia was present. Localized mild inflammation characterized by congestion (edema) was found in the first portion of the duodenum. Biopsies were taken with a cold forceps for histology. Verification of patient identification for the specimen was done. Estimated blood loss was minimal. Impression: - Esophageal mucosal changes suspicious for short-segment Lisa's esophagus. Biopsied. - Moderate Schatzki ring. Dilated. - Medium-sized hiatal hernia. - Duodenitis. Biopsied. Recommendation: - Written discharge instructions were provided to the patient. - The signs and symptoms of potential delayed complications were discussed with the patient. - Patient has a contact number available for emergencies. - Return to normal activities tomorrow. - Resume previous diet. - Continue present medications. - Await pathology results. Procedure Code(s): --- Professional --- 18851, Esophagogastroduodenoscopy, flexible, transoral; with insertion of guide wire followed by passage of dilator(s) through esophagus over guide wire 85401, 59, Esophagogastroduodenoscopy, flexible, transoral; with biopsy, single or multiple CPT copyright 2017 [employer]. All rights reserved. The codes documented in this report are preliminary and upon felt tipping machine tender review may be revised to meet current compliance requirements. Castro Mensah DO 07/03/2021 4:11:24 PM This report has been signed electronically. Number of Addenda: 1 Note Initiated On: 07/03/2021 3:31 PM Addendum Number: 1 Addendum Date: 11/23/2021 6:24:00 AM MAC was used as sedation for this procedure. Castro Mensah DO 11/23/2021 6:24:04 AM This report has been signed electronically.
[2021-07-03 16:15] VITALS: BP 128/69; BP 140/75; PULSE 50; RESP 16; O2SAT 99
[2021-07-03 16:20] VITALS: BP 131/79; BP 140/75; RESP 16; TEMP 36.2; O2SAT 98
[2021-07-03 16:31] VITALS: BP 140/75
== END 2021-07-03 16:44 | disposition home or self-care (01) ==
LOC: EN 14:28 → AC 14:31
PROVIDERS: PCP Family Medicine Geriatric Medicine; Referring Provider Family Medicine Geriatric Medicine; Visit Provider Internal Medicine Gastroenterology
PROC: 0DJ08ZZ Inspection of Upper Intestinal Tract, Via Natural or Artificial Opening Endoscopic (ICD-10-PCS; CPT 43235; principal; 2021-07-03 15:25)
DX: R13.10 Dysphagia, unspecified (principal); C91.11 Chronic lymphocytic leukemia of B-cell type in remission; F03.90 Unspecified dementia, unspecified severity, without behavioral disturbance, psychotic disturbance, mood disturbance, and anxiety; K44.9 Diaphragmatic hernia without obstruction or gangrene; K29.80 Duodenitis without bleeding; E78.00 Pure hypercholesterolemia, unspecified; E78.5 Hyperlipidemia, unspecified; Z86.73 Personal history of transient ischemic attack (TIA), and cerebral infarction without residual deficits
CPT/HCPCS: 43239; 43248; 88305; 88313; 88341; 88342; J7120; C1769; J2405

== ENCOUNTER → 2021-09-06 | Outpatient (CLI) | payer MEDICARE, MEDICAID, SELFPAY ==
[2021-09-06 12:48] LABS: Absolute Neutrophil Count 3.8 X10^3/uL (2.0-7.7); Basophil# 0.04 X10^3/uL; Basophil% 0.3 % (0-1); Eosinophil# 0.07 X10^3/uL; Eosinophils% 0.4 % (0-5); Hematocrit 36.5 % (40-54); Hemoglobin 11.6 g/dL (13.0-16.5); Lymphocyte % 73.3 % (19-41); Mean Corp Hgb Conc 31.8 g/dL (32-36); Mean Corpuscular Hgb 30.8 pg (27.0-32.0); Mean Corpuscular Volume 96.8 fL (80-94); Mean Platelet Vol. 10.4 fl (6.2-12.0); Monocyte% 1.9 % (0-10); NRBC Flagged by Analyzer 0 % (0-5); Neutrophil # 3.82 X10^3/uL (2.7-7.7); Neutrophil % 23.9 % (47-70); POSITIVE DIFFERENTIAL YES; Platelet Count 250 K/mm3 (150-450); RBC Distribution Width CV 13.2 % (11.6-14.6); RBC Distribution Width SD 47.1 fl (35.1-43.9); Red Blood Count 3.77 M/mm3 (4.6-6.2)
[2021-09-06 13:06] LABS: ALB/GLOB Ratio 0.7 RATIO (0.9-2.4); AST(SGOT) 26 U/L (15-37); Alanine Aminotransfer ALT/SGPT 48 U/L (16-61); Albumin, Serum 2.9 g/dL (3.2-5.0); Alkaline Phosphatase 111 U/L (45-117); Anion Gap 5 (5-15); BUN 10 mg/dL (7-18); BUN/Creat Ratio 9.9 RATIO (10-20); Calcium,Total 9.4 mg/dL (8.5-10.1); Chloride 106 mmol/L (98-107); Creatinine, Serum 1.01 mg/dL (0.70-1.30); EST Glomerular Filtration Rate 76 mL/min (>60); Est Glom Filt Rate - Afr Amer 93 mL/min (>60); Globulin 4.4 g/dL (2.2-4.2); Glucose 123 mg/dL (74-106); Potassium 3.5 mmol/L (3.5-5.1); Protein, Total 7.3 g/dL (6.4-8.2); Sodium Level 139 mmol/L (136-145); Thyroid Stim Hormone (TSH) 1.42 uIU/mL (0.358-3.74)
[2021-09-06 13:08] LABS: Differential Indicated SCAN CRITERIA MET
[2021-09-06 13:13] LABS: Vitamin D,25 Hydroxy 19.1 ng/mL
[2021-09-06 13:23] LABS: Differential Comment SCANNED
== END | disposition home or self-care (01) ==
LOC: POLAB3 09:13
PROVIDERS: PCP Family Medicine Geriatric Medicine; Visit Provider Family Medicine Geriatric Medicine
DX: R53.83 Other fatigue (principal); E55.9 Vitamin D deficiency, unspecified
CPT/HCPCS: 36415; 80053; 82306; 84443; 85025

== ENCOUNTER → 2021-09-06 | Outpatient (CLI) | payer MEDICARE, MEDICAID, SELFPAY ==
--- NOTE | 2021-09-06 07:00 | ECHOD_ITS ---
Reason For Study: CAD/ASHD Procedure This was a 2D Doppler, Color Flow transthoracic echocardiogram. Exam performed in department. Left Ventricle Normal left ventricle. Left ventricular systolic function is normal. The estimated ejection fraction is 60 %. Normal diastology for age. No regional wall motion abnormalities noted. Right Ventricle Normal RV size. Normal systolic function. Atria Normal left atrium. Normal right atrium. Mitral Valve Normal mitral valve. Tricuspid Valve Normal tricuspid valve. Mild tricuspid valve insufficiency. Pulmonary artery systolic pressure is 30 mmHg. Aortic Valve Normal aortic valve. Trisinus/trileaflet aortic valve. Pulmonic Valve Normal pulmonic valve. Great Vessels Normal aortic root. The pulmonary artery is normal size. Normal inferior vena cava. Pericardium/Pleural No pericardial effusion. MMode/2D Measurements & Calculations LVIDd: 4.5 cm IVSd: 1.2 cm LAV(MOD-bp): 59.2 ml LVIDs: 2.8 cm LVPWd: 1.1 cm LAV(MOD-bp) Indexed: 30.6 ml/m2 RVDd: 3.0 cm FS: 37.2 % LAV(MOD-sp2): 55.9 ml LAV(MOD-sp4): 60.0 ml SV(MOD-sp4): 33.4 ml SV(sp4-el): 35.7 ml LVAd ap4: 22.7 cm2 LVLd ap4: 6.9 cm EDV(MOD-sp4): 62.2 ml EDV(sp4-el): 63.6 ml LVAs ap4: 13.7 cm2 LVLs ap4: 5.7 cm ESV(MOD-sp4): 28.8 ml ESV(sp4-el): 27.9 ml EF(MOD-sp4): 53.7 % EF(sp4-el): 56.2 % LA A4 area: 21.2 cm2 LA dimension(2D): 3.5 cm RA A4 area: 15.0 cm2 Time Measurements MV dec time: 0.18 sec Doppler Measurements & Calculations MV E max shana: 53.3 cm/sec MV V2 max: 71.5 cm/sec MV dec slope: 300.3 cm/sec2 MV A max shana: 66.7 cm/sec MV max P.0 mmHg MV E/A: 0.80 MV V2 mean: 40.0 cm/sec MV mean P.76 mmHg MV V2 VTI: 25.3 cm Ao V2 max: 110.7 cm/sec LV V1 max: 97.7 cm/sec TR max shana: 259.4 cm/sec Ao max P.9 mmHg LV V1 max P.8 mmHg TR max P.9 mmHg ECHO/Echo Complete Interpretation Summary Normal left ventricle. Left ventricular systolic function is normal. The estimated ejection fraction is 60 %. Normal diastology for age. Pulmonary artery systolic pressure is 30 mmHg. Ordering Physician: Rehan Rowland Referring Physician: Rehan Rowland Performed By: Aline Corley RCS
--- NOTE | 2021-09-06 12:38 | STRESSREP ---
Stress Test Report Pharmacologic myocardial perfusion stress test. 76-year-old man with a history of coronary disease and abnormal EKG. Stress protocol: Resting EKG demonstrates sinus bradycardia with rate of 59 bpm normal intervals are noted resting blood pressure is 140/76 mmHg. 0.4 mg of regadenoson was infused per usual protocol followed by rapid intravenous saline flush injection continuous EKG monitoring was performed. The maximum heart rate attained was 86 bpm which was 59% of max impacted heart rate the maximum workload was 1 metabolic equivalent. At rest there were no ST or T wave changes noted to suggest abnormal flow reserve and at peak infusion nonspecific ST changes were noted with did not meet the criteria for ischemia. Myocardial perfusion protocol. 11.5 mCi of technetium 99m sestamibi was injected at rest. 0.4 mg of regadenoson was infused per usual protocol. At peak infusion 33.1 mCi of technetium 99m sestamibi was injected stress images were obtained stress and rest images were reconstructed in comparing the short axis vertical long and horizontal long axis. Gated images were also obtained for Perfusion SPECT analysis: Review of the stress images demonstrate normal uptake of tracer noted in all areas of the myocardium. The resting images similar demonstrate normal uptake of tracer noted in all areas of the myocardium. No reversibility is noted suggest ischemia no previous infarct is noted. Gated SPECT analysis: The gated ejection fraction is 76%. Conclusion: Normal pharmacologic myocardial perfusion stress test. Preserved ejection fraction.
== END | disposition home or self-care (01) ==
PROVIDERS: PCP Family Medicine Geriatric Medicine; Referring Provider Internal Medicine Cardiovascular Disease; Visit Provider Internal Medicine Cardiovascular Disease
DX: R55 Syncope and collapse (principal); R06.02 Shortness of breath; R53.83 Other fatigue; E55.9 Vitamin D deficiency, unspecified
CPT/HCPCS: 36415; 78452; 80053; 82306; 84443; 85025; 93017; 93306; A9500; A4216; J2785

== ENCOUNTER → 2021-09-11 | Outpatient (CLI) | payer MEDICARE, MEDICAID, SELFPAY ==
--- NOTE | 2021-09-11 13:57 | SP.MBSS_ITS ---
Modified Barium Swallow - Patient Information Study Date: 09/11/21 Study Time: 13:00 Direct Billable Minutes: 100 Total Minutes procedure & reportin Diagnosis: History of CVA (Z86.73), Dysphagia (R13.10) Referring Physician: Castro Mensah Reason for Referral: Objectively assess swallow function, risk for aspiration, and determine recommendations for least restrictive diet textures and compensatory strategies to improve safety of swallow. Medical History: The patient is a 76-year-old male with PMH including vascular dementia, hiatal hernia, adult failure to thrive, closed head injury, dysphagia, gastric reflux, and CVA (2020). The patient is a poor historian. Per caregiver, Brooke, the patient eats with a quick rate and at times will cough when eating and drinking. At times, he will regurgitate foods. Pt was referred for MBS study from cellular tower climber, Dr. Mensah, who noted he will gag and cough with foods, such as meats without sauce. He has had an esophageal ring dilated. Current Diet Ordered: Regular textures / Thin liquids Dentition: WNL Mental Status: Impaired - Vascular dementia Respiratory Status: Oxygenating on Room Air - Penetration-Aspiration Scale Penetration-Aspiration Scale: OBJECTIVE ASSESSMENT OF SWALLOW FUNCTION (QUANTITATIVE ? PER TRIAL): PENETRATION / ASPIRATION SCALE (HOLLY): 1 = does not enter airway 2 = enters airway/above vocal folds/ejected 3 = enters airway/above vocal folds/not ejected 4 = enters airway/contacts vocal folds/ejected 5 = enters airway/contacts vocal folds/not ejected 6 = enters airway/below vocal folds/ejected 7 = enters airway/below vocal folds/not ejected despite effort 8 = enters airway/below vocal folds/no effort VIDEOFLOROSCOPIC SCALE SCORE (HOLLY): Grade I = aspiration of material that has penetrated into the laryngeal vestibule, intact cough reflex Grade II = aspiration < 10 % of the bolus, intact cough reflex Grade III = aspiration of < 10 % of the bolus, reduced cough reflex or aspiration of > 10 % of the bolus, intact cough reflex Grade IV = aspiration of > 10 % of the bolus, reduced cough reflex - Penetration-Aspiration Scale Score Thin Liquid via teaspoon Result: 1= does not enter airway Thin Liquid via teaspoon Trial 2 Result: 2= enter airway/above vocal folds/ejected Thin Liquid via small single sip from cup Result: 1= does not enter airway Thin Liquid via sequential sips from cup Result: 1= does not enter airway Fox Thick Liquid via small single sip from cup Result: 1= does not enter airway Honey Thick Liquid via small single sip from cup Result: 1= does not enter airway Pudding via teaspoon with esophageal screen Result: 1= does not enter airway 1/2 Cookie Result: 1= does not enter airway Thin Liquid via sequential sips from straw Result: 2= enter airway/above vocal folds/ejected Comment: HVAC SERVICE TECHNICIAN cued pt for a single drink, but he took large sequential swallows. - Oral Phase Labial Seal: No Labial Escape Tongue Control During Bolus Hold: Posterior escape of greater than half of bolus Bolus Preparation/Mastication: Slow prolonged chewing/mashing with complete recollection - Slowed mastication; however, premature posterior loss observed to the vallecula Bolus Transport/Lingual Motion: Repetitive/disorganized tongue motion Oral Residue: Residue collection on oral structures - Pharyngeal Phase Initiation of Pharyngeal Swallow: Bolus head in pyriforms - sequential cup Soft Palate Elevation: No bolus between soft palate and pharyngeal wall Laryngeal Elevation: Partial superior movement thyroid cart/partial apprx aryt- epig petiole Anterior Hyoid Excursion: Partial anterior movement Epiglottic Movement: Partial inversion Laryngeal Vestibule Closure at Height of Swallow: Complete; no air/contrast in laryngeal vestibule Pharyngeal Stripping Wave: Present - diminished Pharyngoesophageal Segment Opening: Parital distension and partial duration; par ital obstruction of flow Tongue Base Retraction: Narrow column of contrast between tongue base & post. pharyngeal wall Pharyngeal Residue: Collection of residue within or on pharyngeal structures - Esophageal Phase Esophageal Clearance: Esophageal retention w/ retrograde flow below pharyngoesophageal seg. - Treatment Strategies Effects of treatment strategies attemped:: Decreased bolus rate = Effective. Double swallow = Effective. - Diagnosis/Impression Diagnosis: Mild oropharyngeal phase dysphagia (R13.12) Impression: The oral phase is primarily marked by... -Slowed mastication abilities. -Decreased bolus control with premature posterior loss of cookie to the vallecula and premature posterior loss of sequential sips of thin to the pyriforms. -Piecemeal deglutition of cookie with mild oral residue cleared with second swallow. -Repetitive tongue motion for A-P transport. The pharyngeal phase is primarily marked by... -Decreased airway closure during the swallow due to decreased laryngeal el evation and anterior hyoid excursion. -Decreased epiglottic inversion and pharyngeal stripping wave with resulting moderate pharyngeal residues in the vallecula after the swallow of solid textures. He independently initiated a second swallow to clear a majority of the pharyngeal residue. -Laryngeal penetration of thin liquid via tsp and thin liquid via sequential sips via straw that remained above the vocal folds and fully ejected from the laryngeal vestibule. No aspiration observed during the study; however, the patient is at increased risk for aspiration after the swallow or choking if consuming foods too quickly, evidenced by moderate pharyngeal residue present from trial of 1/2 cookie. He would benefit from direct supervision at meals to cue him for a slow rate of intake with use of double swallows on bites of solids. -Decreased UES opening/duration with resulting mild residues in the pyriforms after the swallow. The esophageal phase is primarily marked by... -Mild esophageal retention of pudding with retrograde flow of bolus remaining well below the upper esophageal sphincter. -Majority of the pudding bolus did empty through the lower esophageal sphincter. - Recommendations Diet: Thin Liquids - Easy to Chew Textures (IDDSI Level 7) - Meats chopped with extra sauce/gravy Compensatory Strategies: Small Bites, Small Sips, No Straws, Slow Rate - Sips one at a time, Multiple Swallows - Encourage double swallows with solids, Sitting upright, Remain sitting upright for 30 minutes after PO intake Supervision: 1:1 Close Supervision Recommend Repeat Modified Barium Swallow: No Need for Skilled Speech Therapy Services: Yes Comment: Will recommend the patient for skilled dysphagia therapy to address deficits in oropharyngeal swallow function. Would consider the patient for oropharyngeal strengthening to improve lingual coordination/strength, hyolaryngeal elevation and excursion, pharyngeal contraction, and duration of UES opening (Cosnider lingual resistance exercises, lingual coordination exercises, Effortful swallow, Chin tuck against resistance). The patient would benefit from thorough education regarding diet recommendations and recommended compensatory strategies. Education Completed: 1. Described result of evaluation., 4. Family/caregivers understand evaluation & agree w/ goals & tx plan. - Caregiver, Brooke, verbalized understanding of all recommendations., 7. Pt requires further education on strategies & risks. - Status Active ST Patient: Active - Contact [facility]:: Lata Rosario M.A. [facility]-HVAC SERVICE TECHNICIAN Speech-Language Pathologist [facility] [address] [place] [address] [email or web address] [phone] 09/11/21 16:34
== END | disposition home or self-care (01) ==
LOC: RAD 12:46
PROVIDERS: PCP Family Medicine Geriatric Medicine; Referring Provider Internal Medicine Gastroenterology; Visit Provider Internal Medicine Gastroenterology
DX: R13.10 Dysphagia, unspecified (principal)
CPT/HCPCS: 74230; 92611

== ENCOUNTER 2021-10-01 09:39 | Outpatient (RCR) | payer MEDICARE, MEDICAID, SELFPAY ==
--- NOTE | 2021-10-01 09:48 | ST ---
[facility] Speech Pathology [address] [place] [address] Modified Barium Swallow Study MR#: [id number] Acct: [id number] Name: PETE PLATT Rep #: [id number] : 1945 76 From: Lata Rosario M.A., [facility]-MEDICAL LIBRARIAN Modified Barium Swallow - Patient Information Study Date: 09/11/21 Study Time: 13:00 Direct Billable Minutes: 100 Total Minutes procedure & reportin Diagnosis: History of CVA (Z86.73), Dysphagia (R13.10) Referring Physician: Castro Mensah Reason for Referral: Objectively assess swallow function, risk for aspiration, and determine recommendations for least restrictive diet textures and compensatory strategies to improve safety of swallow. Medical History: The patient is a 76-year-old male with PMH including vascular dementia, hiatal hernia, adult failure to thrive, closed head injury, dysphagia, gastric reflux, and CVA (2020). The patient is a poor historian. Per caregiver, Brooke, the patient eats with a quick rate and at times will cough when eating and drinking. At times, he will regurgitate foods. Pt was referred for MBS study from home delivery driver, Dr. Mensah, who noted he will gag and cough with foods, such as meats without sauce. He has had an esophageal ring dilated. Current Diet Ordered: Regular textures / Thin liquids Dentition: WNL Mental Status: Impaired - Vascular dementia Respiratory Status: Oxygenating on Room Air - Penetration-Aspiration Scale Penetration-Aspiration Scale: OBJECTIVE ASSESSMENT OF SWALLOW FUNCTION (QUANTITATIVE ? PER TRIAL): PENETRATION / ASPIRATION SCALE (HOLLY): 1 = does not enter airway 2 = enters airway/above vocal folds/ejected 3 = enters airway/above vocal folds/not ejected 4 = enters airway/contacts vocal folds/ejected 5 = enters airway/contacts vocal folds/not ejected 6 = enters airway/below vocal folds/ejected 7 = enters airway/below vocal folds/not ejected despite effort 8 = enters airway/below vocal folds/no effort VIDEOFLOROSCOPIC SCALE SCORE (HOLLY): Grade I = aspiration of material that has penetrated into the laryngeal vestibule, intact cough reflex Grade II = aspiration < 10 % of the bolus, intact cough reflex Grade III = aspiration of < 10 % of the bolus, reduced cough reflex or aspiration of > 10 % of the bolus, intact cough reflex Grade IV = aspiration of > 10 % of the bolus, reduced cough reflex - Penetration-Aspiration Scale Score Thin Liquid via teaspoon Result: 1= does not enter airway Thin Liquid via teaspoon Trial 2 Result: 2= enter airway/above vocal folds/ejected Thin Liquid via small single sip from cup Result: 1= does not enter airway Thin Liquid via sequential sips from cup Result: 1= does not enter airway Man Thick Liquid via small single sip from cup Result: 1= does not enter airway Honey Thick Liquid via small single sip from cup Result: 1= does not enter airway Pudding via teaspoon with esophageal screen Result: 1= does not enter airway 1/2 Cookie Result: 1= does not enter airway Thin Liquid via sequential sips from straw Result: 2= enter airway/above vocal folds/ejected Comment: MEDICAL LIBRARIAN cued pt for a single drink, but he took large sequential swallows. - Oral Phase Labial Seal: No Labial Escape Tongue Control During Bolus Hold: Posterior escape of greater than half of bolus Bolus Preparation/Mastication: Slow prolonged chewing/mashing with complete recollection - Slowed mastication; however, premature posterior loss observed to the vallecula Bolus Transport/Lingual Motion: Repetitive/disorganized tongue motion Oral Residue: Residue collection on oral structures - Pharyngeal Phase Initiation of Pharyngeal Swallow: Bolus head in pyriforms - sequential cup Soft Palate Elevation: No bolus between soft palate and pharyngeal wall Laryngeal Elevation: Partial superior movement thyroid cart/partial apprx aryt-epig petiole Anterior Hyoid Excursion: Partial anterior movement Epiglottic Movement: Partial inversion Laryngeal Vestibule Closure at Height of Swallow: Complete; no air/contrast in laryngeal vestibule Pharyngeal Stripping Wave: Present - diminished Pharyngoesophageal Segment Opening: Parital distension and partial duration; parital obstruction of flow Tongue Base Retraction: Narrow column of contrast between tongue base & post. pharyngeal wall Pharyngeal Residue: Collection of residue within or on pharyngeal structures - Esophageal Phase Esophageal Clearance: Esophageal retention w/ retrograde flow below pharyngoesophageal seg. - Treatment Strategies Effects of treatment strategies attemped:: Decreased bolus rate = Effective. Double swallow = Effective. - Diagnosis/Impression Diagnosis: Mild oropharyngeal phase dysphagia (R13.12) Impression: The oral phase is primarily marked by... -Slowed mastication abilities. -Decreased bolus control with premature posterior loss of cookie to the vallecula and premature posterior loss of sequential sips of thin to the pyriforms. -Piecemeal deglutition of cookie with mild oral residue cleared with second swallow. -Repetitive tongue motion for A-P transport. The pharyngeal phase is primarily marked by... -Decreased airway closure during the swallow due to decreased laryngeal elevation and anterior hyoid excursion. -Decreased epiglottic inversion and pharyngeal stripping wave with resulting moderate pharyngeal residues in the vallecula after the swallow of solid textures. He independently initiated a second swallow to clear a majority of the pharyngeal residue. -Laryngeal penetration of thin liquid via tsp and thin liquid via sequential sips via straw that remained above the vocal folds and fully ejected from the laryngeal vestibule. No aspiration observed during the study; however, the patient is at increased risk for aspiration after the swallow or choking if consuming foods too quickly, evidenced by moderate pharyngeal residue present from trial of 1/2 cookie. He would benefit from direct supervision at meals to cue him for a slow rate of intake with use of double swallows on bites of solids. -Decreased UES opening/duration with resulting mild residues in the pyriforms after the swallow. The esophageal phase is primarily marked by... -Mild esophageal retention of pudding with retrograde flow of bolus remaining well below the upper esophageal sphincter. -Majority of the pudding bolus did empty through the lower esophageal sphincter. - Recommendations Diet: Thin Liquids - Easy to Chew Textures (IDDSI Level 7) - Meats chopped with extra sauce/gravy Compensatory Strategies: Small Bites, Small Sips, No Straws, Slow Rate - Sips one at a time, Multiple Swallows - Encourage double swallows with solids, Sitting upright, Remain sitting upright for 30 minutes after PO intake Supervision: 1:1 Close Supervision Recommend Repeat Modified Barium Swallow: No Need for Skilled Speech Therapy Services: Yes Comment: Will recommend the patient for skilled dysphagia therapy to address deficits in oropharyngeal swallow function. Would consider the patient for oropharyngeal strengthening to improve lingual coordination/strength, hyolaryngeal elevation and excursion, pharyngeal contraction, and duration of UES opening (Cosnider lingual resistance exercises, lingual coordination exercises, Effortful swallow, Chin tuck against resistance). The patient would benefit from thorough education regarding diet recommendations and recommended compensatory strategies. Education Completed: 1. Described result of evaluation., 4. Family/caregivers understand evaluation & agree w/ goals & tx plan. - Caregiver, Brooke, verbalized understanding of all recommendations., 7. Pt requires further education on strategies & risks. - Status Active ST Patient: Active - Contact Information [facility] Speech Therapy:: Lata Rosario M.A. [employer]-MEDICAL LIBRARIAN Speech-Language Pathologist [address] [address] [email or web address] [phone] 09/11/21 16:34 09/11/21 1700 <Electronically signed by Lata Rosario M.A., CCC-MEDICAL LIBRARIAN>
--- NOTE | 2021-10-01 11:52 | HP.SP.EVAL ---
History - History Date of Eval: 10/01/21 Medical Diagnosis (from RX): Mild oropharyngeal phase dysphagia (R13.12) Previous speech therapy: No Other Relevant Medical History/Diagnoses/Surgery: PETE PLATT is a 76-year-old male with PMH including vascular dementia, hiatal hernia, adult failure to thrive, closed head injury, dysphagia, gastric reflux, and CVA (approximately 2020). Pt's CVA went undiagnosed until recently following Pt's weight loss and coughing and gagging at the table. Pt lives in a custodial with 4 others. Pt does have access to 24 hour staffing. The patient is a poor historian. Per caregiver, Brooke, the patient eats with a quick rate and at times will cough when eating and drinking. At times, he will regurgitate foods. Pt recently participated in a MBSS study on 09/11/21 following referral from railroad signal technician, Dr. Mensah, who noted he will gag and cough with foods, such as meats without sauce. He has had an esophageal ring dilated. Brooke reporting Pt was nervous prior to MBSS with food sticking and that he was aspirating and would expectorate foods d/t being scared. Since the MBSS Pt feeling more confident in his swallowing abilities and has eliminated expectorating. Smoking Status: Never smoker Hx Tobacco Use: No - Pain Is pain an issue with your current prescribed condition?: No Patient Allergies - Allergies Allergies meloxicam Adverse Reaction (Verified 09/26/21 13:24) Other GREAT EMOTIONAL SWINGS Objective Dysphagia - Administered by Administered by: Self - Thin Liquids Administred via: Cup Oral Transit: Delay > 1 seconds Bolus clearance: fully cleared Gagging: No Cough: delayed, productive Pharyngeal phase: laryngeal elevation mildly restricted slow initiation Comments: Pt independently taking small sips from a cup. Both Pt and caregiver reporting he is taking smaller drinks at home and slowing his rate. - Regular Oral Preparation: WNL Oral Transit: Delay > 5 seconds Bolus clearance: significant clearance/minimal residue Gagging: No Cough: delayed, productive Pharyngeal phase: suspect pharyngeal deficits, laryngeal elevation mildly restricted slow initiation Comments: Education provided re: results of Pt's MBSS study. Pt oriented to pharyngeal residue remaining after bites of cookie. Educated on double swallow and alternating bites and drinks. Pt benefiting from min verbal cues to take sips of water after every 1-2 small bites of Lornadoone cookie during PO trials in today's session. Provided education re: setting down eating utensils between each bite to help slow his overall rate of intake if they find this is difficult for Pt to recall. - Swallowing Impairment Contributing Factors to Swallowing Impairment: Difficulty Following Directions, Mastication Inefficiency - Impact Impact on Safety & Functioning: Risk for Aspiration - Recommendations Modified Barium Swallow/Cookie Swallow Recommended: No Swallowing Treatment: Yes - Diet Texture Recommendations Solids: Easy to Chew (Level 7) Liquids: Thin (Level 0) Other: Handout provided on Level 7 Easy to Chew re: additional food recommendations and foods to avoid. - Safety Saftey Precautions/Swallowing Recommendations (Check all that Apply): Supervision Needed All Meals, 1 to 1 Close Supervision, Reduce Distractions, Needs Verbal Cues to Use Recommended Strategies, Upright Position at Least 30 Minutes After Meals, Small Sips & Bites when Eating, No Straw, Multiple Swallows, Alternate Liquids & Solids Other: Direct education was provided to Pt and caregiver, Brooke re: the safe swallowing strategies and environmental/behavioral precautions to take into consideration during PO intake. Handout was provided with a checklist for each of the strategies to adhere to at breakfast, lunch, and supper. - Results Swallowing Within Normal Limits: No Swallowing Diagnosis: Oropharyngeal Phase Dysphagia (R13.12) Severity: Mild Modified Barium Results Hx MBS Report Entered: Yes MBS Results (from prior exam): 10/01/21 09:48 Speech Therapy by Makayla Ríos [facility] Speech Pathology [address] [place] [address] Modified Barium Swallow Study MR#: [id number] Acct: [id number] Name: PETE PLATT Rep #: [id number] : 1945 76 From: Lata Rosario M.A. [facility] Modified Barium Swallow - Patient Information Study Date: 09/11/21 Study Time: 13:00 Direct Billable Minutes: 100 Total Minutes procedure & reportin Diagnosis: History of CVA (Z86.73), Dysphagia (R13.10) Referring Physician: Castro Mensah Reason for Referral: Objectively assess swallow function, risk for aspiration, and determine recommendations for least restrictive diet textures and compensatory strategies to improve safety of swallow. Medical History: The patient is a 76-year-old male with PMH including vascular dementia, hiatal hernia, adult failure to thrive, closed head injury, dysphagia, gastric reflux, and CVA (2020). The patient is a poor historian. Per caregiver, Brooke, the patient eats with a quick rate and at times will cough when eating and drinking. At times, he will regurgitate foods. Pt was referred for MBS study from railroad signal technician, Dr. Mensah, who noted he will gag and cough with foods, such as meats without sauce. He has had an esophageal ring dilated. Current Diet Ordered: Regular textures / Thin liquids Dentition: WNL Mental Status: Impaired - Vascular dementia Respiratory Status: Oxygenating on Room Air - Penetration-Aspiration Scale Penetration-Aspiration Scale: OBJECTIVE ASSESSMENT OF SWALLOW FUNCTION (QUANTITATIVE ? PER TRIAL): PENETRATION / ASPIRATION SCALE (HOLLY): 1 = does not enter airway 2 = enters airway/above vocal folds/ejected 3 = enters airway/above vocal folds/not ejected 4 = enters airway/contacts vocal folds/ejected 5 = enters airway/contacts vocal folds/not ejected 6 = enters airway/below vocal folds/ejected 7 = enters airway/below vocal folds/not ejected despite effort 8 = enters airway/below vocal folds/no effort VIDEOFLOROSCOPIC SCALE SCORE (HOLLY): Grade I = aspiration of material that has penetrated into the laryngeal vestibule, intact cough reflex Grade II = aspiration < 10 % of the bolus, intact cough reflex Grade III = aspiration of < 10 % of the bolus, reduced cough reflex or aspiration of > 10 % of the bolus, intact cough reflex Grade IV = aspiration of > 10 % of the bolus, reduced cough reflex - Penetration-Aspiration Scale Score Thin Liquid via teaspoon Result: 1= does not enter airway Thin Liquid via teaspoon Trial 2 Result: 2= enter airway/above vocal folds/ejected Thin Liquid via small single sip from cup Result: 1= does not enter airway Thin Liquid via sequential sips from cup Result: 1= does not enter airway Hawley Thick Liquid via small single sip from cup Result: 1= does not enter airway Honey Thick Liquid via small single sip from cup Result: 1= does not enter airway Pudding via teaspoon with esophageal screen Result: 1= does not enter airway 1/2 Cookie Result: 1= does not enter airway Thin Liquid via sequential sips from straw Result: 2= enter airway/above vocal folds/ejected Comment: CREDIT CONSULTANT cued pt for a single drink, but he took large sequential swallows. - Oral Phase Labial Seal: No Labial Escape Tongue Control During Bolus Hold: Posterior escape of greater than half of bolus Bolus Preparation/Mastication: Slow prolonged chewing/mashing with complete recollection - Slowed mastication; however, premature posterior loss observed to the vallecula Bolus Transport/Lingual Motion: Repetitive/disorganized tongue motion Oral Residue: Residue collection on oral structures - Pharyngeal Phase Initiation of Pharyngeal Swallow: Bolus head in pyriforms - sequential cup Soft Palate Elevation: No bolus between soft palate and pharyngeal wall Laryngeal Elevation: Partial superior movement thyroid cart/partial apprx aryt-epig petiole Anterior Hyoid Excursion: Partial anterior movement Epiglottic Movement: Partial inversion Laryngeal Vestibule Closure at Height of Swallow: Complete; no air/contrast in laryngeal vestibule Pharyngeal Stripping Wave: Present - diminished Pharyngoesophageal Segment Opening: Parital distension and partial duration; parital obstruction of flow Tongue Base Retraction: Narrow column of contrast between tongue base & post. pharyngeal wall Pharyngeal Residue: Collection of residue within or on pharyngeal structures - Esophageal Phase Esophageal Clearance: Esophageal retention w/ retrograde flow below pharyngoesophageal seg. - Treatment Strategies Effects of treatment strategies attemped:: Decreased bolus rate = Effective. Double swallow = Effective. - Diagnosis/Impression Diagnosis: Mild oropharyngeal phase dysphagia (R13.12) Impression: The oral phase is primarily marked by... -Slowed mastication abilities. -Decreased bolus control with premature posterior loss of cookie to the vallecula and premature posterior loss of sequential sips of thin to the pyriforms. -Piecemeal deglutition of cookie with mild oral residue cleared with second swallow. -Repetitive tongue motion for A-P transport. The pharyngeal phase is primarily marked by... -Decreased airway closure during the swallow due to decreased laryngeal elevation and anterior hyoid excursion. -Decreased epiglottic inversion and pharyngeal stripping wave with resulting moderate pharyngeal residues in the vallecula after the swallow of solid textures. He independently initiated a second swallow to clear a majority of the pharyngeal residue. -Laryngeal penetration of thin liquid via tsp and thin liquid via sequential sips via straw that remained above the vocal folds and fully ejected from the laryngeal vestibule. No aspiration observed during the study; however, the patient is at increased risk for aspiration after the swallow or choking if consuming foods too quickly, evidenced by moderate pharyngeal residue present from trial of 1/2 cookie. He would benefit from direct supervision at meals to cue him for a slow rate of intake with use of double swallows on bites of solids. -Decreased UES opening/duration with resulting mild residues in the pyriforms after the swallow. The esophageal phase is primarily marked by... -Mild esophageal retention of pudding with retrograde flow of bolus remaining well below the upper esophageal sphincter. -Majority of the pudding bolus did empty through the lower esophageal sphincter. - Recommendations Diet: Thin Liquids - Easy to Chew Textures (IDDSI Level 7) - Meats chopped with extra sauce/gravy Compensatory Strategies: Small Bites, Small Sips, No Straws, Slow Rate - Sips one at a time, Multiple Swallows - Encourage double swallows with solids, Sitting upright, Remain sitting upright for 30 minutes after PO intake Supervision: 1:1 Close Supervision Recommend Repeat Modified Barium Swallow: No Need for Skilled Speech Therapy Services: Yes Comment: Will recommend the patient for skilled dysphagia therapy to address deficits in oropharyngeal swallow function. Would consider the patient for oropharyngeal strengthening to improve lingual coordination/strength, hyolaryngeal elevation and excursion, pharyngeal contraction, and duration of UES opening (Cosnider lingual resistance exercises, lingual coordination exercises, Effortful swallow, Chin tuck against resistance). The patient would benefit from thorough education regarding diet recommendations and recommended compensatory strategies. Education Completed: 1. Described result of evaluation., 4. Family/caregivers understand evaluation & agree w/ goals & tx plan. - Caregiver, Brooke, verbalized understanding of all recommendations., 7. Pt requires further education on strategies & risks. - Status Active ST Patient: Active - Contact Information [facility] Speech Therapy:: Lata Rosario M.A. [facility] Speech-Language Pathologist [facility] [address] [place] [address] [email or web address] [phone] 09/11/21 16:34 09/11/21 1700 <Electronically signed by Lata Rosario M.A., [facility]> Electronically signed by Makayla Ríos M.S., [facility] on 10/01/21 09:49 Initialized on 10/01/21 09:48 - END OF NOTE Plan - Plan Plan: Will rx Pt for skilled outpatient tx to address deficits in oropharyngeal dysphagia. Pt would benefit from training and education re: process of thickening liquids, diet tolerance checks, and swallowing exercises to aid in oropharyngeal strengthening. Without skilled intervention, Pt is at risk for consuming a restrictive diet putting him at risk for aspiration pneumonia and atrophy of laryngeal musculature. - Recommendations MBS: No Treatment Warranted: Yes Treatment Warranted: Dysphagia - Progress Prognosis: Excellent - Frequency Frequency: 1x/Week Additional (Frequency): Pt to return in 3 weeks for a follow-up. Duration: 6 Weeks - Goal #1-5 Goal #1: Pt will complete oral motor exercises for 10 reps, 3x/day to aid in bolus manipulation, oral strengthening, and ROM with no cues. Goal #2: Pt will complete pharyngeal exercises for 10 reps, 3x/day independently to improve PES opening/distention, and hyolaryngeal elevation and excursion including the following exercises: CTAR, effortful, yawning, Shaker, Hossein. Education - Patient has Indicated that the Following Identified Educational Needs: Cognitively Impaired Other Educational Needs: baseline dementia - Patient Instruction Patient Education: Diagnosis, Treatment Plan, Goals, Home Exercise Program Other Education: Direct education provided re: oropharyngeal swallowing exercises including instruction on the Shaker, chin tuck against resistance, effortful swallow, Hossein, and yawning, as well as a variety of lingual control exercises. A handout was provided for both home exercise instruction sets. Pt demonstrated difficulty with recall of how to complete each exercise, however caregiver Jp appeared to demonstrate understanding. Person Taught: Patient, Primary Caregiver Response to teaching: Return demonstration, Verbalize understanding, Reinforcement needed
--- NOTE | 2022-01-23 16:29 | HP.SP.DC_ITS ---
ST Discharge Summary - Discharged: Discharge: PETE PLATT is a 76 year old male who was seen for initial speech therapy dysphagia evaluation at [facility] on 10/01/21 secondary to dx of Mild oropharyngeal phase dysphagia (R13.12). Pt attended initial evaluation and then canceled the subsequent follow up appointments to discuss oropharyngeal and oral motor exercises to complete as a home program. Pt is being d/c from OP speech therapy on this date, 01/23/22, d/t absence of follow-up and extended treatment gap since initial evaluation. Thank you for allowing me to participate the care of your Pt. Will reevaluate at Pt?s request following script from physician.
== END 2021-10-01 19:00 | disposition home or self-care (01) ==
LOC: SP 09:39
PROVIDERS: PCP Family Medicine Geriatric Medicine; Referring Provider Internal Medicine Gastroenterology; Visit Provider Internal Medicine Gastroenterology
DX: R13.10 Dysphagia, unspecified (principal)
CPT/HCPCS: 92610

== ENCOUNTER 2021-10-25 18:13 | Emergency (ER) | payer MEDICARE, MEDICAID, SELFPAY ==
[2021-10-25 18:15] VITALS: BP 135/76; PULSE 91; RESP 18; TEMP 38; O2SAT 95; BMI 20.5
--- NOTE | 2021-10-25 18:30 | EKG12_ITS ---
Test Reason : DYSRHYTHMIA Blood Pressure : / mmHG Vent. Rate : 081 BPM Atrial Rate : 081 BPM P-R Int : 156 ms QRS Dur : 088 ms QT Int : 358 ms P-R-T Axes : 057 014 052 degrees QTc Int : 415 ms Normal sinus rhythm Nonspecific T wave abnormality Abnormal ECG Confirmed by PETE ALVA, YUSUF ([id number]), offline editor BHARATI KHAN ([id number]) on 10/26/2021 2:16:24 PM Referred By: DENISSE Confirmed By:BARRETT FREEMAN MD
[2021-10-25] MEDS: Acetaminophen 500 MG Tablet 1000 MG PO (18:44)
--- NOTE | 2021-10-25 18:51 | CT_ITS ---
STUDY: CT BRAIN WITHOUT CONTRAST REASON FOR EXAM: Male, 76 years old. Technologist Notes Confusion, fever, history of CVA. confusion Individualized dose optimization techniques were used for this CT. TECHNIQUE: Transaxial CT imaging of the brain was performed without administration of intravenous contrast material. COMPARISON: 11.01.20 FINDINGS: There are calcifications noted in the distal vertebral arteries. There are calcifications noted in the cavernous carotid arteries. This is consistent for atherosclerotic disease. Normal calvarium. Normal soft tissues. Old left frontal lobe infarct. There is mild cerebral atrophy with widening of the extra-axial spaces and ventricular dilatation. There are areas of decreased attenuation within the white matter tracts of the supratentorial brain, consistent with microvascular disease changes. Normal basal ganglia and thalami. Normal brainstem. There is mild cerebellar atrophy. There is no intracranial hemorrhage. There are no findings of an acute ischemic infarction. Normal visualized paranasal sinuses. ASPECTS Score for Acute Strokes: 10/ CT/Brain/Head without Contrast IMPRESSION: There are no acute findings. Chronic involutional changes of the brain. Electronically Signed: Chase Ramírez MD at 19:33 EDT ,
--- NOTE | 2021-10-25 18:51 | EX.ED.DYSGE1 ---
HPI History of Present Illness Chief Complaint: Confusion Informant: patient and family Narrative Narrative: Sent in from retirement increasing confusion fever today. Patient reports intermittent cough. History of vascular dementia has been at the retirement for the past 6 years. Sister is present. History of CLL. Blood glucose 130s. Denies urinary symptoms. Denies recent vomiting or diarrhea. He is COVID vaccinated. Denies COVID infections in the past. Denies any sick contacts. [facility] Medical History Adult failure to thrive Anxiety CLL (chronic lymphocytic leukemia) Closed head injury without concussion Depression Dysphagia Forehead laceration Gastric reflux Non-smoker Shortness of breath on exertion Somnolence Stenosis of left carotid artery Vascular dementia Wears glasses Home Medications aspirin 81 mg tablet,delayed release 81 mg PO QHS HEALTH MAINTENANCE 07/17/20 [History Last Taken 07/16/20] atorvastatin 40 mg tablet 40 mg PO QHS CHOLESTEROL 07/17/20 [History Last Taken 07/16/20] donepezil 10 mg tablet 10 mg PO QHS MEMORY 07/17/20 [History Last Taken 07/16/20] memantine 5 mg tablet 5 mg PO BID MEMORY 07/17/20 [History Last Taken 07/17/20] clopidogrel 75 mg tablet (Plavix) 75 mg PO DAILY 07/22/20 [History Last Taken 07/02/21] citalopram 10 mg tablet 10 mg PO QHS 05/18/21 [History Last Taken Unknown] vitamin B12 1 mg-folic acid 0.8 mg tablet 1 tab PO DAILY 05/18/21 [History Last Taken Unknown] flaxseed oil 1,000 mg capsule 1,000 mg PO DAILY 09/26/21 [History Last Taken Unknown] cephalexin 500 mg capsule 500 mg PO TID #21 caps 10/25/21 [Rx Last Taken Unknown] mirtazapine 7.5 mg tablet 7.5 mg PO DAILY 10/25/21 [History Last Taken Unknown] Allergy/AdvReac Type Severity Reaction Status Date / Time meloxicam AdvReac Other Verified 10/25/21 18:15 Surgical History History of left common carotid artery stent placement (07/27/20) History of vasectomy Social History Smoking Status: Never smoker alcohol intake: never substance use type: does not use ROS ROS ED Constitutional Constitutional ED: Reports fever(s); Denies chills or sweats Eyes Eyes: Denies change in vision ENT ENT ED: Denies dysphagia or sore throat Cardiovascular Cardiovascular: Denies chest pain, leg edema, palpitations or racing heartbeat Respiratory/Chest Respiratory/Chest: Reports cough; Denies dyspnea or dyspnea on exertion Gastrointestinal Gastrointestinal: Denies abdominal pain, diarrhea, nausea or vomiting Genitourinary Genitourinary ED: Denies dysuria, hematuria or urinary frequency Musculoskeletal Musculoskeletal: Denies back pain, extremity pain or neck pain Integumentary Denies rash or wounds Neurologic Neurologic: Denies headache(s), paresthesias or weakness EXAM Physical Exam Const Vital Signs: 10/25/21 18:15 10/25/21 20:01 10/25/21 20:01 Temperature 100.4 F H 98.3 F Temperature Source Oral Oral Pulse Rate 91 Respiratory Rate 18 Blood Pressure 135/76 H Blood Pressure Mean 95 Pulse Ox 95 98 Oxygen Delivery Method Room Air Room Air 10/25/21 20:01 10/25/21 21:00 10/25/21 21:00 Temperature 98.3 F 98.2 F 98.2 F Temperature Source Oral Temporal Temporal Pulse Rate 75 78 Respiratory Rate 20 H 20 H Blood Pressure 136/80 H 136/80 H Blood Pressure Mean 98 98 Pulse Ox 97 98 Oxygen Delivery Method Nasal Cannula Room Air 10/25/21 21:00 Temperature 98.2 F Temperature Source Temporal Pulse Rate 78 Respiratory Rate 20 H Blood Pressure 136/80 H Blood Pressure Mean 98 Pulse Ox 98 Oxygen Delivery Method Room Air Positive well nourished and well developed General Appearance ED: well developed and NAD HEENT Reports moist mucous membranes normocephalic and atraumatic Eyes PERRL, EOMs intact bilaterally and conjunctivae normal General Eye ED: Yes normal appearance of both eyes Neck no lymphadenopathy and supple General: Negative for tenderness Chest Wall Chest: Negative for tenderness Resp normal respiratory effort and normal air movement Effort and Inspection: symmetric chest movement; Negative for respiratory distress Cardio regular rate, regular rhythm and no murmurs Peripheral Pulses: pulses 2+ throughout GI normal to inspection, nondistended, normoactive bowel sounds and non-tender Palpation: Negative for guarding or rebound tenderness present Back/Spine no CVA tenderness and no thoracic nor lumbar tenderness Extremity normal to inspection General Extremety ED: Negative for edema or tenderness General Extremity: Negative for edema Neuro no sensory deficits noted Neuro Narrative: Alert and oriented person place, did not know the year or month. Sensorium / Orientation: awake and alert Skin no rashes or lesions noted and no wounds MDM MDM MDM Narrative Medical decision making narrative: Patient nontoxic low-grade fever in the ED. Reported altered mental status, sepsis labs were ordered. CT brain obtained negative. Chest x-ray 1 view reviewed by myself and read by radiology shows no acute process. White count 11.2 hemoglobin 11.7. Creatinine 1.12. Stable from previous. COVID-negative, urine positive for infection. Culture pending. Rocephin given. On reevaluation family present, reports he is at his baseline with his vascular dementia. He is walking around in the room. They are okay with him being discharged with outpatient management with oral antibiotics. Patient discharged with sister. Lab Data Attestation: I reviewed the patient's lab results. Labs: Laboratory Results - last 24 hr 10/25/21 10/25/21 10/25/21 18:36 18:36 18:36 WBC 11.2 H RBC 3.83 L Hgb 11.7 L Hct 36.2 L MCV 94.5 H MCH 30.5 MCHC 32.3 RDW Std Deviation 50.6 H RDW Coeff of [place] 14.6 Plt Count 178 MPV 9.8 Immature Gran % (Auto) 0.400 Neut % (Auto) 43.2 L Lymph % (Auto) 52.9 H [place] % (Auto) 3.3 Eos % (Auto) 0.0 Baso % (Auto) 0.2 Absolute Neuts (auto) 4.8 Absolute Lymphs (auto) 5.90 H Nucleated RBC % 0 Differential Comment SEE COMMENT Atypical Lymphocytes 1+ Platelet Estimate ADEQUATE RBC Morphology N CHROM Anisocytosis RARE Macrocytosis RARE PT 15.2 H INR 1.2 APTT 34.2 Sodium 134 L Potassium 4.1 Chloride 103 Carbon Dioxide 24.0 Anion Gap 7 BUN 13 Creatinine 1.12 Estim Creat Clear Calc 55.21 Est GFR (MDRD) Af Amer 82 Est GFR (MDRD) Non-Af 68 BUN/Creatinine Ratio 11.6 Glucose 133 H Lactic Acid Calcium 8.8 Total Bilirubin 1.20 H AST 13 L ALT 17 Alkaline Phosphatase 89 Total Protein 6.9 Albumin 3.2 Globulin 3.7 Albumin/Globulin Ratio 0.9 Urine Color Urine Clarity Urine pH Ur Specific [place] Urine Protein Urine Glucose (UA) Urine Ketones Urine Occult Blood Urine Nitrite Urine Bilirubin Urine Urobilinogen Ur Leukocyte Esterase Urine RBC Urine WBC Ur Squamous Epith Cells Urine Bacteria Urine Mucus 10/25/21 10/25/21 18:36 20:00 WBC RBC Hgb Hct MCV MCH MCHC RDW Std Deviation RDW Coeff of [place] Plt Count MPV Immature Gran % (Auto) Neut % (Auto) Lymph % (Auto) [place] % (Auto) Eos % (Auto) Baso % (Auto) Absolute Neuts (auto) Absolute Lymphs (auto) Nucleated RBC % Differential Comment Atypical Lymphocytes Platelet Estimate RBC Morphology Anisocytosis Macrocytosis PT INR APTT Sodium Potassium Chloride Carbon Dioxide Anion Gap BUN Creatinine Estim Creat Clear Calc Est GFR (MDRD) Af Amer Est GFR (MDRD) Non-Af BUN/Creatinine Ratio Glucose Lactic Acid 1.2 Calcium Total Bilirubin AST ALT Alkaline Phosphatase Total Protein Albumin Globulin Albumin/Globulin Ratio Urine Color Yellow Urine Clarity Sl. Cloudy Urine pH 6.0 Ur Specific [place] 1.015 Urine Protein 30 H Urine Glucose (UA) Normal Urine Ketones Negative Urine Occult Blood 150 H Urine Nitrite Negative Urine Bilirubin Negative Urine Urobilinogen Normal Ur Leukocyte Esterase 500 H Urine RBC 5-10 SEEN Urine WBC 50-100 SEEN Ur Squamous Epith Cells 0-5 SEEN Urine Bacteria 4+ Urine Mucus 0 SEEN Radiography Diagnostic Testing: Clinical Impression(s) from Imaging Studies Brain CT 10/25/21 18:51 IMPRESSION: There are no acute findings. Chronic involutional changes of the brain. Electronically Signed: Chase Ramírez MD at 19:33 EDT , Chest X-Ray 10/25/21 18:54 IMPRESSION: There are no acute findings. Electronically Signed: Chase Ramírez MD at 19:16 EDT , EKG Initial EKG: Attestation: I personally reviewed and interpreted this EKG as follows: Comments: Sinus rate of 81, no ST or T wave changes. Discharge Plan Triage Chief Complaint: Confusion Other Complaint: Fever ED Provider: Aaron Bryan Dx/Rx/DC Orders Clinical Impression: Acute UTI, Vascular dementia, Fever Instructions: Urinary Tract Infections in Men, ED Fever Control (Adult) Prescriptions: New cephalexin 500 mg capsule 500 mg PO TID Qty: 21 0RF No Action flaxseed oil 1,000 mg capsule 1,000 mg PO DAILY Rx Instructions: administer with a meal atorvastatin 40 mg tablet 40 mg PO QHS donepezil 10 mg tablet 10 mg PO QHS aspirin 81 mg Tablet,Delayed Release (Dr/Ec) 81 mg PO QHS memantine 5 mg tablet 5 mg PO BID clopidogrel [Plavix] 75 mg Tablet 75 mg PO DAILY citalopram 10 mg tablet 10 mg PO QHS vitamin [id number] acid 1-0.8 mg Tablet 1 tab PO DAILY mirtazapine 7.5 mg Tablet 7.5 mg PO DAILY Primary Care Provider: Joel Waters Chi Referrals: Joel Waters Chi, MD [Primary Care Provider] - 3-5 Days Activity Restrictions/Additional Instructions: Urine with infection. COVID-negative. Chest x-ray negative. Labs are stable. Take antibiotic as prescribed. Tylenol as needed for fever. Disposition Disposition: Home, Self Care Discharge Date/Time: 10/25/21 21:55
--- NOTE | 2021-10-25 18:54 | RAD_ITS ---
STUDY: XR Chest 1 View 10/25/2021 6:48 PM REASON FOR EXAM: Male, 76 years old. CHEST PAIN confusion COMPARISON: 08/12/2020 TECHNIQUE: XR Chest 1 View FINDINGS: There is no demonstrated pleural abnormality. Normal heart size. Normal mediastinum. Normal lucille. Prominent appearing increased interstitial lung markings. Normal visualized pulmonary arteries. There is atherosclerotic calcification of the aortic arch with tortuosity. There are diffuse degenerative changes of the visualized thoracic spine. There is degenerative osteoarthritis of the bilateral shoulders. There is no demonstrated abnormality of the visualized soft tissue structures of the upper abdomen. RAD/Chest 1 View (Portable) IMPRESSION: There are no acute findings. Electronically Signed: Chase Ramírez MD at 19:16 EDT ,
[2021-10-25 18:56] LABS: Absolute Neutrophil Count 4.8 X10^3/uL (2.0-7.7); Basophil# 0.02 X10^3/uL; Basophil% 0.2 % (0-1); Hematocrit 36.2 % (40-54); Hemoglobin 11.7 g/dL (13.0-16.5); Lymphocyte % 52.9 % (19-41); Mean Corp Hgb Conc 32.3 g/dL (32-36); Mean Corpuscular Hgb 30.5 pg (27.0-32.0); Mean Corpuscular Volume 94.5 fL (80-94); Mean Platelet Vol. 9.8 fl (6.2-12.0); Monocyte# 0.37 X10^3/uL; Monocyte% 3.3 % (0-10); NRBC Flagged by Analyzer 0 % (0-5); Neutrophil # 4.83 X10^3/uL (2.7-7.7); Neutrophil % 43.2 % (47-70); POSITIVE DIFFERENTIAL YES; POSITIVE MORPHOLOGY YES; Platelet Count 178 K/mm3 (150-450); RBC Distribution Width CV 14.6 % (11.6-14.6); RBC Distribution Width SD 50.6 fl (35.1-43.9); Red Blood Count 3.83 M/mm3 (4.6-6.2); White Blood Count 11.2 K/mm3 (4.4-11.0)
[2021-10-25 19:01] LABS: Differential Indicated SCAN CRITERIA MET
[2021-10-25 19:15] LABS: International Normalized Ratio 1.2; Prothrombin Time (Protime)PT. 15.2 SECONDS (11.7-14.9)
[2021-10-25 19:16] LABS: Partial Thromboplast Time 34.2 Seconds (24.1-36.2)
[2021-10-25 19:24] LABS: ALB/GLOB Ratio 0.9 RATIO (0.9-2.4); AST(SGOT) 13 U/L (15-37); Alanine Aminotransfer ALT/SGPT 17 U/L (16-61); Albumin, Serum 3.2 g/dL (3.2-5.0); Alkaline Phosphatase 89 U/L (45-117); Anion Gap 7 (5-15); BUN 13 mg/dL (7-18); BUN/Creat Ratio 11.6 RATIO (10-20); Calcium,Total 8.8 mg/dL (8.5-10.1); Chloride 103 mmol/L (98-107); Creatinine, Serum 1.12 mg/dL (0.70-1.30); EST Glomerular Filtration Rate 68 mL/min (>60); Est Glom Filt Rate - Afr Amer 82 mL/min (>60); Estimated Creatinine Clearance 55.21 ml/min; Globulin 3.7 g/dL (2.2-4.2); Glucose 133 mg/dL (74-106); Lactic Acid 1.2 mmol/L (0.4-1.9); Potassium 4.1 mmol/L (3.5-5.1); Protein, Total 6.9 g/dL (6.4-8.2); Sodium Level 134 mmol/L (136-145)
[2021-10-25 20:01] VITALS: BP 136/80; PULSE 75; RESP 20; TEMP 36.8; O2SAT 97; O2SAT 98
[2021-10-25 20:02] LABS: Anisocytosis RARE; Atypical Lymphocyte 1+ %; Macrocytosis RARE; Platelet Estimate ADEQUATE (ADEQ); Red Cell Morphology N CHROM NORMAL (NORM C&C)
[2021-10-25 20:05] LABS: Mucous, Urine 0 SEEN /hpf (<or=2+)
[2021-10-25 20:15] LABS: Color, Urine Yellow (Yellow); Glucose, Dipstick Normal (Normal); Ketone-Dipstick Negative (Negative); Leukocyte Esterase-Dipstick 500 /ul (Negative); Nitrite-Dipstick Negative (Negative); Occult Blood-Urine 150 /ul (Negative); Protein-Dipstick 30 mg/dl (Negative); Specific Gravity, Urine 1.015 (1.002-1.030); Urine Bilirubin Dipstick Negative (Negative); Urine Clarity Sl. Cloudy (Clear); Urine Urobilinogen Normal (Normal)
[2021-10-25] MEDS: 0.9% Normal Saline 1,000 ML 999 ML IV (20:17)
[2021-10-25 20:22] LABS: Bacteria 4+ /hpf (None Seen); Red Blood Cells-Urine 5-10 SEEN /hpf (0-5); Squamous Epithelial Cells - UA 0-5 SEEN /hpf (0-5); White Blood Cells 50-100 SEEN /hpf (0-5)
[2021-10-25] MEDS: Ceftriaxone 1 GM/50 ML BAG IV (20:35)
--- NOTE | 2021-10-25 20:48 | ED.RN ---
sisters at bedside and will notify [facility] of pt's admission.
[2021-10-25 21:00] VITALS: BP 136/80; PULSE 78; RESP 20; TEMP 36.8; O2SAT 98
--- NOTE | 2021-10-25 21:44 | ED.RN ---
sisters taking pt back to [facility]ial at [place]
== END 2021-10-25 21:55 | disposition home or self-care (01) ==
PROVIDERS: Emergency Provider Emergency Medicine; PCP Family Medicine Geriatric Medicine; Visit Provider Emergency Medicine
DX: N39.0 Urinary tract infection, site not specified (principal); F01.50 Vascular dementia, unspecified severity, without behavioral disturbance, psychotic disturbance, mood disturbance, and anxiety; R50.9 Fever, unspecified; R94.31 Abnormal electrocardiogram [ECG] [EKG]; Z86.73 Personal history of transient ischemic attack (TIA), and cerebral infarction without residual deficits; R07.9 Chest pain, unspecified
CPT/HCPCS: 36415; 70450; 71045; 80053; 81001; 83605; 85025; 85610; 85730; 87040; 87077; 87086; 87088; 87186; 87428; 93005; 99285; J7030; J7050; P9612; A4216

== ENCOUNTER → 2021-12-18 | Outpatient (CLI) | payer MEDICARE, MEDICAID, SELFPAY ==
[2021-12-18 13:14] LABS: Absolute Lymphocyte Count 9.49 X10^3/uL (0.83-4.51); Absolute Neutrophil Count 3.6 X10^3/uL (2.0-7.7); Basophil# 0.06 X10^3/uL; Basophil% 0.4 % (0-1); Eosinophil# 0.13 X10^3/uL; Hematocrit 40.9 % (40-54); Hemoglobin 12.9 g/dL (13.0-16.5); Lymphocyte # 9.49 X10^3/ul (0.83-4.51); Lymphocyte % 69.4 % (19-41); Mean Corp Hgb Conc 31.5 g/dL (32-36); Mean Corpuscular Hgb 30.4 pg (27.0-32.0); Mean Corpuscular Volume 96.2 fL (80-94); Mean Platelet Vol. 10.4 fl (6.2-12.0); Monocyte# 0.41 X10^3/uL; NRBC Flagged by Analyzer 0 % (0-5); Neutrophil # 3.56 X10^3/uL (2.7-7.7); POSITIVE DIFFERENTIAL YES; Platelet Count 198 K/mm3 (150-450); RBC Distribution Width CV 15.7 % (11.6-14.6); RBC Distribution Width SD 55.6 fl (35.1-43.9); Red Blood Count 4.25 M/mm3 (4.6-6.2); White Blood Count 13.7 K/mm3 (4.4-11.0)
[2021-12-18 13:42] LABS: Differential Indicated SCAN CRITERIA MET; Vitamin D,25 Hydroxy 17.6 ng/mL
[2021-12-18 13:43] LABS: Platelet Estimate ADEQUATE (ADEQ)
[2021-12-18 13:44] LABS: Anisocytosis 1+; Ovalocyte 1+; Poikilocytosis 1+
[2021-12-18 13:53] LABS: ALB/GLOB Ratio 0.8 RATIO (0.9-2.4); AST(SGOT) 12 U/L (15-37); Alanine Aminotransfer ALT/SGPT 17 U/L (16-61); Albumin, Serum 3.4 g/dL (3.2-5.0); Alkaline Phosphatase 97 U/L (45-117); Anion Gap 7 (5-15); BUN 15 mg/dL (7-18); BUN/Creat Ratio 11.9 RATIO (10-20); Calcium,Total 9.3 mg/dL (8.5-10.1); Chloride 106 mmol/L (98-107); Creatinine, Serum 1.26 mg/dL (0.70-1.30); EST Glomerular Filtration Rate 59 mL/min (>60); Est Glom Filt Rate - Afr Amer 72 mL/min (>60); Glucose 88 mg/dL (74-106); Potassium 3.8 mmol/L (3.5-5.1); Protein, Total 7.4 g/dL (6.4-8.2); Sodium Level 140 mmol/L (136-145); Thyroid Stim Hormone (TSH) 3.73 uIU/mL (0.358-3.74)
== END | disposition home or self-care (01) ==
LOC: POLAB3 11:45
PROVIDERS: PCP Family Medicine Geriatric Medicine; Visit Provider Family Medicine Geriatric Medicine
DX: E55.9 Vitamin D deficiency, unspecified (principal); R53.83 Other fatigue
CPT/HCPCS: 36415; 80053; 82306; 84443; 85025

== ENCOUNTER → 2022-03-07 | Outpatient (CLI) | payer MEDICARE, MEDICAID, SELFPAY ==
[2022-03-07 10:41] LABS: Absolute Lymphocyte Count 7.58 X10^3/uL (0.83-4.51); Absolute Neutrophil Count 2.8 X10^3/uL (2.0-7.7); Basophil# 0.05 X10^3/uL; Basophil% 0.5 % (0-1); Eosinophil# 0.13 X10^3/uL; Eosinophils% 1.2 % (0-5); Hematocrit 40.1 % (40-54); Lymphocyte # 7.58 X10^3/ul (0.83-4.51); Lymphocyte % 69.5 % (19-41); Mean Corp Hgb Conc 32.4 g/dL (32-36); Mean Corpuscular Hgb 31.6 pg (27.0-32.0); Mean Corpuscular Volume 97.6 fL (80-94); Mean Platelet Vol. 10.1 fl (6.2-12.0); Monocyte# 0.36 X10^3/uL; Monocyte% 3.3 % (0-10); NRBC Flagged by Analyzer 0 % (0-5); Neutrophil # 2.77 X10^3/uL (2.7-7.7); Neutrophil % 25.4 % (47-70); POSITIVE DIFFERENTIAL YES; Platelet Count 196 K/mm3 (150-450); RBC Distribution Width CV 14.9 % (11.6-14.6); RBC Distribution Width SD 53.5 fl (35.1-43.9); Red Blood Count 4.11 M/mm3 (4.6-6.2); White Blood Count 10.9 K/mm3 (4.4-11.0)
[2022-03-07 11:02] LABS: AST(SGOT) 14 U/L (15-37); Alanine Aminotransfer ALT/SGPT 27 U/L (16-61); Albumin, Serum 3.4 g/dL (3.2-5.0); Alkaline Phosphatase 102 U/L (45-117); Anion Gap 4 (5-15); BUN 16 mg/dL (7-18); BUN/Creat Ratio 11.4 RATIO (10-20); Calcium,Total 9.1 mg/dL (8.5-10.1); Chloride 112 mmol/L (98-107); Differential Indicated SCAN CRITERIA MET; EST Glomerular Filtration Rate 52 mL/min (>60); Est Glom Filt Rate - Afr Amer 63 mL/min (>60); Globulin 3.4 g/dL (2.2-4.2); Glucose 82 mg/dL (74-106); Potassium 4.3 mmol/L (3.5-5.1); Protein, Total 6.8 g/dL (6.4-8.2); Sodium Level 143 mmol/L (136-145); Thyroid Stim Hormone (TSH) 2.12 uIU/mL (0.358-3.74)
== END | disposition home or self-care (01) ==
LOC: POLAB3 09:07
PROVIDERS: PCP Family Medicine Geriatric Medicine; Visit Provider Family Medicine Geriatric Medicine
DX: E55.9 Vitamin D deficiency, unspecified (principal); R53.83 Other fatigue
CPT/HCPCS: 36415; 80053; 82306; 84443; 85025

== ENCOUNTER → 2022-05-16 | Outpatient (CLI) | payer MEDICARE, MEDICAID, SELFPAY ==
[2022-05-16 13:29] LABS: Albumin, Serum 3.2 g/dL (3.2-5.0); BUN 20 mg/dL (7-18); BUN/Creat Ratio 15.7 RATIO (10-20); Chloride 107 mmol/L (98-107); Creatinine, Serum 1.27 mg/dL (0.70-1.30); EST Glomerular Filtration Rate 59 mL/min (>60); Est Glom Filt Rate - Afr Amer 71 mL/min (>60); Glucose 135 mg/dL (74-106); Phosphorus 1.9 mg/dL (2.5-4.9); Potassium 3.5 mmol/L (3.5-5.1); Sodium Level 141 mmol/L (136-145)
== END | disposition home or self-care (01) ==
LOC: POLAB3 09:43
PROVIDERS: PCP Family Medicine Geriatric Medicine; Visit Provider Internal Medicine Nephrology
DX: N17.9 Acute kidney failure, unspecified (principal)
CPT/HCPCS: 36415; 80069